=== PATIENT | female | born 1950 | race Caucasian/White ===

== ENCOUNTER 2021-06-09 09:50 | Inpatient (IN) ==
[2021-06-09] MEDS ORDERED: ONDANSETRON INJ 2 MG/ML 2 ML VIAL IV STA (11:48)
[2021-06-09] MEDS ORDERED: SODIUM CHLORIDE 0.9% 1000ML 1,000 ML IV ONE (11:48)
--- NOTE | 2021-06-09 11:51 | Emergency Department Note ---
Impression & Plan Pneumonia due to 2019-nCoV, Hypoxia, COVID-19 ED Provider Note NAME: ESTHER LAU AGE: 70 SEX: F : 1950 ARRIVES VIA: Walk-In INFORMANT: Patient ED PROVIDER(S): Gerson Damico DO CHIEF COMPLAINT: Cough, Covid positive nausea and diarrhea HPI: Patient is a 70-year-old female who presents ER for symptoms that started on the . She is not vaccinated. She admits to diarrhea going about 6 times a day. She is positive for noro virus. She has had nausea and fevers. She has had cough and congestion as well. She vomited once. Denies any dysuria, urgency, or frequency. No chest pain. No other exacerbating or remitting factors. ROS: See above HPI for pertinent positives & negatives. A total of 10 systems reviewed and were otherwise negative. PAST MEDICAL HISTORY:See Below PAST SURGICAL HISTORY:See Below FAMILY HISTORY:See Below SOCIAL HISTORY:See Below HOME MEDICATIONS:See Below ALLERGIES:See Below VITALS:See Below PHYSICAL EXAMINATION: GENERAL: Sitting up in chair, alert, well appearing, well nourished, Persistent cough EYE EXAM: normal conjunctiva. OROPHARYNX: no exudate, no erythema, lips, buccal mucosa, and tongue normal and mucous membranes are moist NECK: supple, no nuchal rigidity, no adenopathy, non-tender LUNGS: Clear to auscultation. Normal chest wall mechanics HEART: no murmurs, S1 normal and S2 normal ABDOMEN: abdomen soft, non-tender, normo-active bowel sounds, no masses, no rebound or guarding. BACK: Back is symmetrical on inspection and there is no deformity, no midline tenderness, no CVA tenderness. SKIN: no rashes and no bruising UPPER EXTREMITIES: upper extremities are grossly normal. LOWER EXTREMITIES: No pitting edema. NEURO EXAM: Normal sensorium, cranial nerves II-XII grossly intact, normal sp eech, no gross weakness of arms, no gross weakness of legs. MEDICAL DECISION MAKING: Patient is a 70-year-old female who presents the ER for upper respiratory symptoms associated with diarrhea. IV was established blood work obtained. She is Covid positive. Labs show mild leukopenia 4.2 thousand. No significant anemia. BMP with mild hypokalemia 3.4. LFTs bilirubin was unremarkable. Troponin was negative. UA was contaminated. Chest x-ray with bilateral infilt rates. Patient was given fluids and Decadron. She was updated bedside discussed with hospitalist for further evaluation. Triage Nursing notes reviewed. Limited review of prior medical records performed Vital Signs: reviewed and remarkable for no significant abnormalities Differential diagnosis: Differential diagnoses includes but is not limited to pneumonia, bronchitis, COPD/Asthma exacerbation, pneumothorax, pulmonary embolism, congestive heart failure, acute coronary syndrome ER treatment provided: See below Diagnostics interpreted by me: ECG: Sinus rhythm rate 81 Normal axis No PVCs QTC 401 Cardiac Monitoring: An order was placed for continuous cardiac monitoring. The monitor shows a rate of 80 with sinus rhythm. Laboratory studies: As stated above and show below. Imaging studies: Chest x-ray shows bilateral infiltrates Consultation(s): Discussed the hospitalist for further evaluation Procedures: none Critical Care: None Past Med/Surg History Medical History (Updated 06/09/21 @ 17:45 by Gerson Damico DO) Fibromyalgia GERD (gastroesophageal reflux disease) Hypercholesterolemia Lumbar radiculopathy Surgical History History of D&C Family History Other Diabetes Social History Smoking Status: Never smoker Hx Alcohol Use: No Hx Substance Use: No Feels Safe at Home: Yes Allergies Allergies Allergy/AdvReac Type Severity Reaction Status Date / Time amoxicillin [From Augmentin] Allergy Intermediate diarrhea Verified 06/07/21 19:13 celecoxib [From Celebrex] Allergy Intermediate Diarrhea Verified 06/07/21 19:13 clavulanic acid Allergy Intermediate diarrhea Verified 06/07/21 19:13 [From Augmentin] Home Meds Home Medications Medication Instructions Recorded Confirmed acetaminophen 500 mg tablet 1,000 mg PO DIRECTED PRN 06/07/21 06/09/21 (Tylenol Extra Strength) atorvastatin 20 mg tablet 20 mg PO HS 06/07/21 06/09/21 duloxetine 60 mg capsule,delayed 60 mg PO DAILY 06/07/21 06/09/21 release hydrocodone 5 mg-acetaminophen 325 1 tab PO DIRECTED PRN 06/07/21 06/09/21 mg tablet melatonin 5 mg tablet 5 mg PO HS 06/07/21 06/09/21 pregabalin 50 mg capsule 50 mg PO TID 06/07/21 06/09/21 trazodone 100 mg tablet 100 mg PO HS 06/07/21 06/09/21 Previous Rx's Medication Instructions Recorded ondansetron 4 mg disintegrating 4 mg PO Q8H PRN #10 tab 06/08/21 tablet Results & Data (ED) Vital Signs Vital Signs - 24 hr 06/09/21 09:52 06/09/21 13:55 06/09/21 14:06 Temperature 37.5 C Temperature Source Skin Pulse Rate 88 Pulse Rate [Apical] 79 Pulse Rhythm [Apical] Regular Respiratory Rate 20 14 Respiratory Effort / Characteristics Non-Labored Blood Pressure 105/62 Blood Pressure [Left Arm] 131/61 Blood Pressure Mean 76 Blood Pressure Mean [Left Arm] 84 Pulse Oximetry 94 95 89 L Oxygen Delivery Method Room Air Room Air Room Air Sepsis Recent Fever Within 48 Hours Yes Sepsis New/Unexplained Change in Mental Status No Sepsis Action Taken by Nursing No Action Required 06/09/21 15:00 Temperature Temperature Source Pulse Rate Pulse Rate [Apical] 81 Pulse Rhythm [Apical] Respiratory Rate Respiratory Effort / Characteristics Blood Pressure Blood Pressure [Left Arm] 107/37 L Blood Pressure Mean Blood Pressure Mean [Left Arm] 60 Pulse Oximetry 90 Oxygen Delivery Method Room Air Sepsis Recent Fever Within 48 Hours Sepsis New/Unexplained Change in Mental Status Sepsis Action Taken by Nursing Laboratory Data Result diagrams: 06/09/21 12:00 06/09/21 12:00 Lab Results 06/09/21 06/09/21 06/09/21 Range/Units 11:50 12:00 12:00 WBC 4.22 L (4.8-10.8) K/uL RBC 4.37 (4.2-5.4) M/uL Hgb 13.4 (12.0-16.0) g/dL Hct 39.4 (37-47) % MCV 90.2 (80-100) fL MCH 30.7 (25-34) pg MCHC 34.0 (32-36) g/dL RDW Std Deviation 40.6 (36.4-46.3) fL RDW Coeff of Suz[place] 12.3 (11.5-14.5) % Plt Count 125 L (130-400) K/uL MPV 12.8 H (7.4-10.4) fL Immature Gran % (Auto) 0.5 % Neut % (Auto) 81.0 % Lymph % (Auto) 11.6 % [place] % (Auto) 6.9 % Eos % (Auto) 0.0 % Baso % (Auto) 0.0 % Neut # (Auto) 3.42 (1.4-6.5) K/uL Lymph # (Auto) 0.49 L (1.2-3.4) K/uL [place] # (Auto) 0.29 (0.11-0.59) K/uL Eos # (Auto) 0.00 (0-0.5) K/uL Baso # (Auto) 0.00 (0-0.2) K/uL Immature Gran # (Auto) 0.02 (0.00-0.02) K/uL Sodium 139 (136-145) mmol/L Potassium 3.4 L (3.5-5.1) mmol/L Chloride 105 (98-107) mmol/L Carbon Dioxide 27 (21-32) mmol/L Anion Gap 7.0 (3-11) BUN 7 (7-18) mg/dl Creatinine 0.77 (0.6-1.2) mg/dl Est Cr Clr Drug Dosing 73.1 ml/min Est GFR ( Amer) 92.0 ml/min Est GFR (Non-Af Amer) 79.3 ml/min BUN/Creatinine Ratio 8.7 L (10-20) Glucose 138 H (70-99) mg/dl Calcium 8.2 L (8.5-10.1) mg/dl Magnesium (1.8-2.4) mg/dl Ferritin (8-388) ng/ml Total Bilirubin 0.3 (0.2-1) mg/dl AST 45 H (15-37) U/L ALT 28 (12-78) Alkaline Phosphatase 56 (45-117) U/L Troponin I < 0.015 (0-0.045) ng/ml C-Reactive Protein (0-0.29) mg/dl Total Protein 6.2 L (6.4-8.2) gm/dl Albumin 3.1 L (3.4-5.0) gm/dl Globulin 3.1 (2.5-4.0) gm/dl Albumin/Globulin Ratio 1.0 (0.9-2) Procalcitonin (0-0.5) ng/ml Specimen Hemolysis Urine Color Dark Yellow Urine Appearance Clear (Clear) Urine pH 6.0 (4.5-7.5) Ur Specific [place] 1.019 (1.000-1.030) Urine Protein 1+ H (Negative) Urine Glucose (UA) Negative (Negative) Urine Ketones Negative (Negative) Urine Blood Negative (Negative) Urine Nitrite Negative (Negative) Urine Bilirubin Negative (Negative) Urine Urobilinogen Negative (Negative) Ur Leukocyte Esterase Negative (Negative) Urine WBC (Auto) 5-10 H (0-5) /hpf Urine RBC (Auto) 0-4 (0-4) /hpf U Hyaline Cast (Auto) 5-10 H (0-5) /lpf U Epithel Cells (Auto) >30 H (0-5) /lpf Urine Bacteria (Auto) Negative (Negative) Ur Renal Epithelial Cell Not Reportable 06/09/21 06/09/21 Range/Units 12:00 12:00 WBC (4.8-10.8) K/uL RBC (4.2-5.4) M/uL Hgb (12.0-16.0) g/dL Hct (37-47) % MCV (80-100) fL MCH (25-34) pg MCHC (32-36) g/dL RDW Std Deviation (36.4-46.3) fL RDW Coeff of [place] (11.5-14.5) % Plt Count (130-400) K/uL MPV (7.4-10.4) fL Immature Gran % (Auto) % Neut % (Auto) % Lymph % (Auto) % [place] % (Auto) % Eos % (Auto) % Baso % (Auto) % Neut # (Auto) (1.4-6.5) K/uL Lymph # (Auto) (1.2-3.4) K/uL [place] # (Auto) (0.11-0.59) K/uL Eos # (Auto) (0-0.5) K/uL Baso # (Auto) (0-0.2) K/uL Immature Gran # (Auto) (0.00-0.02) K/uL Sodium (136-145) mmol/L Potassium (3.5-5.1) mmol/L Chloride (98-107) mmol/L Carbon Dioxide (21-32) mmol/L Anion Gap (3-11) BUN (7-18) mg/dl Creatinine (0.6-1.2) mg/dl Est Cr Clr Drug Dosing ml/min Est GFR ( Amer) ml/min Est GFR (Non-Af Amer) ml/min BUN/Creatinine Ratio (10-20) Glucose (70-99) mg/dl Calcium (8.5-10.1) mg/dl Magnesium 2.1 (1.8-2.4) mg/dl Ferritin 1463.9 H (8-388) ng/ml Total Bilirubin (0.2-1) mg/dl AST (15-37) U/L ALT (12-78) Alkaline Phosphatase (45-117) U/L Troponin I (0-0.045) ng/ml C-Reactive Protein 3.67 H (0-0.29) mg/dl Total Protein (6.4-8.2) gm/dl Albumin (3.4-5.0) gm/dl Globulin (2.5-4.0) gm/dl Albumin/Globulin Ratio (0.9-2) Procalcitonin 0.05 (0-0.5) ng/ml Specimen Hemolysis Urine Color Urine Appearance (Clear) Urine pH (4.5-7.5) Ur Specific [place] (1.000-1.030) Urine Protein (Negative) Urine Glucose (UA) (Negative) Urine Ketones (Negative) Urine Blood (Negative) Urine Nitrite (Negative) Urine Bilirubin (Negative) Urine Urobilinogen (Negative) Ur Leukocyte Esterase (Negative) Urine WBC (Auto) (0-5) /hpf Urine RBC (Auto) (0-4) /hpf U Hyaline Cast (Auto) (0-5) /lpf U Epithel Cells (Auto) (0-5) /lpf Urine Bacteria (Auto) (Negative) Ur Renal Epithelial Cell Administered Medications Discontinued Medications Sodium Chloride (Nss 1000ml) 1,000 mls @ 999 mls/hr IV .Q1H1M ONE Stop: 06/09/21 12:48 Last Infusion: 06/09/21 13:58 Dose: 0 mls/hr Documented by: [id number] Admin: 06/09/21 12:18 Dose: 999 mls/hr Documented by: [id number] Dexamethasone 6 mg/ Syringe 1.5 mls @ 1 mls/min IV ONE ONE Stop: 06/09/21 17:02 Last Admin: 06/09/21 17:39 Dose: 1 mls/min Documented by: [id number] Ondansetron HCl (Ondansetron Inj 2 Mg/Ml 2 Ml Vial) 4 mg IV NOW STA Stop: 06/09/21 11:49 Last Admin: 06/09/21 12:18 Dose: 4 mg Documented by: [id number] Potassium Chloride (Potassium Chloride Crtab 20 Meq Tabcr) 40 meq PO NOW ONE Stop: 06/09/21 15:35 Last Admin: 06/09/21 16:13 Dose: 40 meq Documented by: [id number] Imaging Data Radiologist's Impression: Chest X-Ray 06/09/21 11:49 XR chest 1V portable CLINICAL HISTORY: fever covid. Difficulty breathing. Follow-up alveolar opacities COMPARISON STUDY: 06/07/2021 TECHNIQUE: 1 view of the chest FINDINGS: Single frontal view of the chest demonstrates the cardiomediastinal silhouette to be within normal limits. Compared to previous examination, there has been significant interval increase of patchy interstitial and alveolar opacities present bilaterally. The findings are most characteristic of a viral type pneumonitis and Covid 19 pneumonia. There is no evidence for pleural effusion. There is no evidence for vascular congestion. There is no acute osseous pathology. IMPRESSION: Significant interval increase in patchy interstitial and alveolar opacities bilaterally characteristic of a viral type pneumonitis and Covid 19 pneumonia. ACT 112: Negative or not required by law. Electronically signed by: Mason Porras M.D. 06/09/2021 12:12 PM Discharge Plan Visit Data Chief Complaint: Vomiting Stated Complaint: NOROVIRUS/THROWING UP/DIARRHEA ED Provider: Gerson Damico Discharge Problem: Pneumonia due to 2019-nCoV, Hypoxia, COVID-19
--- NOTE | 2021-06-09 12:13 | XRay Report ---
XR chest 1V portable CLINICAL HISTORY: fever covid. Difficulty breathing. Follow-up alveolar opacities COMPARISON STUDY: 06/07/2021 TECHNIQUE: 1 view of the chest FINDINGS: Single frontal view of the chest demonstrates the cardiomediastinal silhouette to be within normal li mits. Compared to previous examination, there has been significant interval increase of patchy inters titial and alveolar opacities present bilaterally. The findings are most characteristic of a viral ty pe pneumonitis and Covid 19 pneumonia. There is no evidence for pleural effusion. There is no evidenc e for vascular congestion. There is no acute osseous pathology. IMPRESSION: Significant interval increase in patchy interstitial and alveolar opacities bilaterally c haracteristic of a viral type pneumonitis and Covid 19 pneumonia. ACT 112: Negative or not required by law. Electronically signed by: Mason Porras M.D. 06/09/2021 12:12 PM
[2021-06-09 12:33] LABS: Hematocrit (blood only) 39.4 % (37-47); Hemoglobin 13.4 g/dL (12.0-16.0); Mean Corpuscular Hemoglobin 30.7 pg (25-34); Mean Corpuscular Volume 90.2 fL (80-100); Mean Platelet Volume 12.8 fL (7.4-10.4); Platelet Count 125 K/uL (130-400); RDW Coefficient of Variation 12.3 % (11.5-14.5); RDW Standard Deviation 40.6 fL (36.4-46.3); Red Blood Count 4.37 M/uL (4.2-5.4); White Blood Count 4.22 K/uL (4.8-10.8)
[2021-06-09 12:37] LABS: Immature Granulocytes # (auto) 0.02 K/uL (0.00-0.02); Immature Granulocytes % (auto) 0.5 %; Lymphocytes # (auto) 0.49 K/uL (1.2-3.4); Lymphocytes % (auto) 11.6 %; Monocytes # (auto) 0.29 K/uL (0.11-0.59); Monocytes % (auto) 6.9 %; Neutrophils # (auto) 3.42 K/uL (1.4-6.5)
[2021-06-09 14:14] LABS: Alanine Aminotransferase 28 (12-78); Albumin Level 3.1 gm/dl (3.4-5.0); Aspartate Aminotransferase 45 U/L (15-37); BUN Creatinine Ratio 8.7 (10-20); Blood Urea Nitrogen 7 mg/dl (7-18); Calcium 8.2 mg/dl (8.5-10.1); Carbon Dioxide 27 mmol/L (21-32); Chloride 105 mmol/L (98-107); Creatinine Clr Calc Pharmacy 73.1 ml/min; Est GFR (Non-African American) 79.3 ml/min; Glucose 138 mg/dl (70-99); Potassium 3.4 mmol/L (3.5-5.1); Sodium 139 mmol/L (136-145)
[2021-06-09 14:21] LABS: Alkaline Phosphatase 56 U/L (45-117); Bilirubin,Total 0.3 mg/dl (0.2-1); Globulin 3.1 gm/dl (2.5-4.0); Total Protein 6.2 gm/dl (6.4-8.2); Troponin I < 0.015 ng/ml (0-0.045)
[2021-06-09 14:37] LABS: Appearance Urine Clear (Clear); Bacteria Urine Automated Negative (Negative); Bilirubin Urine Negative (Negative); Blood Urine Negative (Negative); Color Urine Dark Yellow; Epithelial Cell Urine Auto >30 /lpf (0-5); Glucose Urine UA Negative (Negative); Ketones Urine Negative (Negative); Leukocyte Esterase Urine Negative (Negative); Nitrite Urine Negative (Negative); Protein Urine 1+ (Negative); RBC Urine Automated 0-4 /hpf (0-4); Specific Gravity Urine 1.019 (1.000-1.030); Urobilinogen Urine Negative (Negative)
[2021-06-09] MEDS ORDERED: POTASSIUM CHLORIDE CRTAB 20 MEQ TABCR PO ONE (15:34)
[2021-06-09 15:48] LABS: C Reactive Protein 3.67 mg/dl (0-0.29); Ferritin 1463.9 ng/ml (8-388); Magnesium 2.1 mg/dl (1.8-2.4)
--- NOTE | 2021-06-09 15:50 | History & Physical Report ---
Date of Service June 09, 2021 Assessment & Plan (1) Pneumonia due to 2019-nCoV: (2) Hypoxia: Plan: Patient is 70-year-old female with PMH GERD, dyslipidemia, fibromyalgia presented to ER with complaint of nonproductive cough, fever, nasal congestion, nausea, diarrhea, loss of taste, CA, myalgias. Initial symptom onset 05/30/2021. No vomiting today. Positive outpatient COVID-19 test on 06/04/2021. Today in ER noted 89% on room air with ambulation, other vitals stable CXR: Patchy interstitial and alveolar opacities bilaterally No leukocytosis Admit MedSurg Isolation precautions CRP, ferritin, procalcitonin pending Start dexamethasone Supplemental oxygen as needed Incentive spirometry, flutter valve Duo nebs We will hold on remdesivir since patient >10 days symptom onset CBC, CMP in am (3) Diarrhea: Plan: Diarrhea secondary to norovirus (tested + 06/07/2021) and COVID-19 Gentle IVF Clear liquid diet (4) Acute hypokalemia: Plan: K: 3.4 Replace and monitor Obtain magnesium labs (5) Fibromyalgia: Plan: Continue duloxetine, pregabalin, hydrocodone as needed (6) Hypercholesterolemia: Plan: Continue atorvastatin DVT Prophylaxis -Lovenox SQ Full Code Follows with Dr Ricketts for routine care Pt was seen and care coordinated with Dr Allred. See addendum History of Present Illness Chief Complaint: cough, diarrhea Primary Care Provider: Bryce Ricketts Patient is 70-year-old female with PMH GERD, dyslipidemia, fibromyalgia presented to ER with complaint of nonproductive cough and nausea and diarrhea. Patient reports 05/30/2021 started with chills. 06/02/2021 started with cough, nausea, diarrhea. Patient reports loss of taste, nasal congestion, CA, myalgias, fever, was 100.6F this morning. She had positive COVID-19 test on 06/04/2021 outpatient. States yesterday vomited once. No vomiting today. Reports 2 episodes of diarrhea today. is also ill. Patient is not vaccinated for COVID-19. Was seen in ER 06/07/2021 and did not have hypoxia and was discharged home. She did have positive norovirus stool culture. Today in ER noted 89% on room air with ambulation, other vitals stable Chest x-ray consistent with Covid pneumonia. Denies hematemesis, hematochezia, melena, dizziness, syncope, vision changes, neck pain, CP, palpitations, sore throat, choking, otalgia, abdominal pain, paresthesias, extremity weakness, extremity edema, rashes, urinary symptoms. Allergies Allergy/AdvReac Type Severity Reaction Status Date / Time amoxicillin [From Augmentin] Allergy Intermediate diarrhea Verified 06/07/21 19:13 celecoxib [From Celebrex] Allergy Intermediate Diarrhea Verified 06/07/21 19:13 clavulanic acid Allergy Intermediate diarrhea Verified 06/07/21 19:13 [From Augmentin] Home Medications Medication Instructions Recorded Confirmed Type acetaminophen 500 mg tablet 1,000 mg PO DIRECTED PRN 06/07/21 06/09/21 History (Tylenol Extra Strength) atorvastatin 20 mg tablet 20 mg PO HS 06/07/21 06/09/21 History duloxetine 60 mg capsule,delayed 60 mg PO DAILY 06/07/21 06/09/21 History release hydrocodone 5 mg-acetaminophen 325 1 tab PO DIRECTED PRN 06/07/21 06/09/21 History mg tablet melatonin 5 mg tablet 5 mg PO HS 06/07/21 06/09/21 History pregabalin 50 mg capsule 50 mg PO TID 06/07/21 06/09/21 History trazodone 100 mg tablet 100 mg PO HS 06/07/21 06/09/21 History ondansetron 4 mg disintegrating 4 mg PO Q8H PRN #10 tab 06/08/21 06/09/21 Rx tablet Past Med/Surg History Medical History (Updated 06/09/21 @ 17:45 by Gerson Damico DO) Fibromyalgia GERD (gastroesophageal reflux disease) Hypercholesterolemia Lumbar radiculopathy Surgical History History of D&C Family History Other Diabetes Social History Smoking Status: Never smoker Hx Alcohol Use: No Hx Substance Use: No Feels Safe at Home: Yes Review of Systems Review of Systems: All systems reviewed & are unremarkable except as noted in HPI & below Physical Exam Physical Exam: General: no acute distress, WDWN Head: normocephalic, atraumatic Eyes: conjunctiva non-injected, anicteric ENT: normal inspection external ears, nose, mucous membranes dry Neck: supple, trachea midline Lungs: 93% on room air at rest, diminished breath sounds, crackles CV: RRR, no pretibial edema Abd: normal BS, soft, non-tender Ext: no cyanosis, no calf tenderness Neuro: A&O x 3, no focal deficits noted, normal affect Skin: warm, dry Results & Data Results & Data ([facility]) Vital Signs (Past 12 Hours) Vital Signs Temp Pulse Pulse Resp BP BP Pulse Ox 06/09/21 15:00 81 107/37 L 90 06/09/21 14:06 89 L 06/09/21 13:55 79 14 131/61 95 06/09/21 09:52 37.5 C 88 20 105/62 94 Laboratory Results Short CBC 06/09/21 Range/Units 12:00 WBC 4.22 L (4.8-10.8) K/uL Hgb 13.4 (12.0-16.0) g/dL Hct 39.4 (37-47) % Plt Count 125 L (130-400) K/uL BMP 06/09/21 12:00 Sodium 139 Potassium 3.4 L Chloride 105 Carbon Dioxide 27 BUN 7 Creatinine 0.77 Glucose 138 H Calcium 8.2 L Cardiac Enzymes 06/09/21 Range/Units 12:00 Troponin I < 0.015 (0-0.045) ng/ml Liver Function 06/09/21 Range/Units 12:00 Total Bilirubin 0.3 (0.2-1) mg/dl AST 45 H (15-37) U/L ALT 28 (12-78) Alkaline Phosphatase 56 (45-117) U/L Albumin 3.1 L (3.4-5.0) gm/dl Urine 06/09/21 Range/Units 11:50 Urine Color Dark Yellow Urine Appearance Clear (Clear) Urine pH 6.0 (4.5-7.5) Ur Specific [place] 1.019 (1.000-1.030) Urine Protein 1+ H (Negative) Urine Glucose (UA) Negative (Negative) Diagnostic Findings Chest X-Ray 12/08/21 11:49 XR chest 1V portable CLINICAL HISTORY: fever covid. Difficulty breathing. Follow-up alveolar opacities COMPARISON STUDY: 06/07/2021 TECHNIQUE: 1 view of the chest FINDINGS: Single frontal view of the chest demonstrates the cardiomediastinal silhouette to be within normal limits. Compared to previous examination, there has been significant interval increase of patchy interstitial and alveolar opacities present bilaterally. The findings are most characteristic of a viral type pneumonitis and Covid 19 pneumonia. There is no evidence for pleural effusion. There is no evidence for vascular congestion. There is no acute osseous pathology. IMPRESSION: Significant interval increase in patchy interstitial and alveolar opacities bilaterally characteristic of a viral type pneumonitis and Covid 19 pneumonia. ACT 112: Negative or not required by law. Electronically signed by: Mason Porras M.D. 06/09/2021 12:12 PM Code Status & VTE Plan VTE Prophylaxis Plan VTE Prophylaxis will be ordered: Yes Supervising Physician Co-Signing Physician Notes Patient is a 70-year-old female with history of fibromyalgia, dyslipidemia and other medical problems presents with history of cough, nausea, diarrhea associated with fever, chills. Also reports headache, myalgia, loss of taste and poor appetite. She was found to be hypoxic at 89% while on room air. Please review HPI for complete details in addition. Blood work suggestive of thrombocytopenia 125, hypokalemia 3.4. Urinalysis pending. She was recently found to have norovirus on stool studies. Chest x-ray showed interval increase in patchy interstitial and alveolar opacities bilaterally consistent with viral pneumonitis. Procalcitonin within normal limits. Initial troponin is negative. On exam patient is moderately built and nourished, no apparent distress, normocephalic atraumatic, EOMI, decreased breath sounds, clear to auscultation, S1-S2, no murmur, no pedal edema, abdomen soft, nontender, no normal bowel sounds, alert, awake, oriented, grossly no focal deficits. Acute hypoxic respiratory failure secondary to multifocal COVID-19 pneumonia. Continue dexamethasone. Supplemental oxygen as needed. Pulmonary hygiene. Will hold her lisinopril given onset of onset greater than 10 days. Replace electrolytes as needed. On Lovenox for DVT prophylaxis. I personally reviewed the record. Patient is interviewed and examined at bedside. Patient's care is coordinated with Monique Katz PA-C. Please refer to the documentation above for details of patient's presentation and for discussion of other issues.
--- NOTE | 2021-06-09 16:20 | Electrocardiogram Report ---
Test Reason : Blood Pressure : / mmHG Vent. Rate : 081 BPM Atrial Rate : 081 BPM P-R Int : 176 ms QRS Dur : 076 ms QT Int : 346 ms P-R-T Axes : 040 059 015 degrees QTc Int : 401 ms Poor data quality, interpretation may be adversely affected Normal sinus rhythm Possible Left atrial enlargement Low voltage QRS Nonspecific ST and T wave abnormality Abnormal ECG No previous ECGs available Confirmed by Dave Silver ([id number]) on 06/09/2021 4:20:30 PM Referred By: REFERRED SELF Confirmed By:Dave Silver
[2021-06-09] MEDS ORDERED: dexAMETHasone 6 MG in SYRINGE 0 ML IV ONE (17:01)
[2021-06-09] MEDS ORDERED: SODIUM CHLORIDE 0.9% 1000ML 1,000 ML IV SCH (18:01)
[2021-06-09] MEDS: dexAMETHasone 6 MG in SYRINGE 0 ML IV SCH (18:36)
[2021-06-09] MEDS ORDERED: ALBUT/IPRATROP 3MG/0.5MG NEB 3 ML VIAL NEB PRN (18:47)
[2021-06-09] MEDS ORDERED: ALBUT/IPRATROP 3MG/0.5MG NEB 3 ML VIAL NEB SCH (19:00)
[2021-06-09] MEDS: ENOXAPARIN INJ 40 MG/0.4 ML SYR SQ SCH (20:36)
[2021-06-09] MEDS: MELATONIN 3 MG TAB PO SCH (21:46)
[2021-06-09] MEDS: traZODone HCL 100 MG TAB PO SCH (21:46)
[2021-06-09] MEDS: ATORVASTATIN 20 MG TAB PO SCH (21:47)
[2021-06-09] MEDS: PREGABALIN 50 MG CAP PO SCH (21:47)
[2021-06-10] MEDS: ENOXAPARIN INJ 40 MG/0.4 ML SYR SQ SCH ×2 (06:23→16:58)
[2021-06-10 07:18] LABS: Hematocrit (blood only) 37.4 % (37-47); Hemoglobin 12.4 g/dL (12.0-16.0); Mean Corpuscular Hgb Conc 33.2 g/dL (32-36); Mean Corpuscular Volume 90.6 fL (80-100); Mean Platelet Volume 12.8 fL (7.4-10.4); Platelet Count 136 K/uL (130-400); RDW Coefficient of Variation 12.5 % (11.5-14.5); RDW Standard Deviation 41.2 fL (36.4-46.3); Red Blood Count 4.13 M/uL (4.2-5.4); White Blood Count 2.98 K/uL (4.8-10.8)
[2021-06-10] MEDS: dexAMETHasone 6 MG in SYRINGE 0 ML IV SCH (07:27)
[2021-06-10] MEDS: PREGABALIN 50 MG CAP PO SCH ×3 (07:28→21:14)
[2021-06-10] MEDS: ONDANSETRON INJ 2 MG/ML 2 ML VIAL IV PRN (07:28)
[2021-06-10] MEDS: DULoxetine HCL 60 MG CAP PO SCH (07:44)
[2021-06-10 07:50] LABS: Albumin Level 2.7 gm/dl (3.4-5.0); BUN Creatinine Ratio 12.6 (10-20); Bilirubin,Total 0.2 mg/dl (0.2-1); Calcium 8.1 mg/dl (8.5-10.1); Creatinine Clr Calc Pharmacy 81.6 ml/min; Est GFR (African American) 103.7 ml/min; Est GFR (Non-African American) 89.4 ml/min; Magnesium 2.1 mg/dl (1.8-2.4); Potassium 3.4 mmol/L (3.5-5.1)
[2021-06-10 07:51] LABS: Albumin Globulin Ratio 0.8 (0.9-2); Globulin 3.3 gm/dl (2.5-4.0)
[2021-06-10 09:49] LABS: Adenovirus F 40/41 PCR Not Detected (NotDetected); Astrovirus PCR Not Detected (NotDetected); Campylobacter PCR Not Detected (NotDetected); Clostridium diff Toxin A/B PCR Not Detected (NotDetected); Cryptosporidium PCR Not Detected (NotDetected); Cyclospora cayetanensis PCR Not Detected (NotDetected); Entamoeba histolytica PCR Not Detected (NotDetected); Enteroaggregative E.coli(EAEC) Not Detected (NotDetected); Enteropathogenic E.coli (EPEC) Not Detected (NotDetected); Enterotoxigenic E.coli (ETEC) Not Detected (NotDetected); Giardia lamblia PCR Not Detected (NotDetected); Norovirus GI/GII PCR Not Detected (NotDetected); Plesiomonas shigelloides PCR Not Detected (NotDetected); Rotavirus A PCR Not Detected (NotDetected); Salmonella PCR Not Detected (NotDetected); Sapovirus PCR Not Detected (NotDetected); Shiga-like Toxin E.coli (STEC) Not Detected (NotDetected); Shigella/Enteroinvasive E.coli Not Detected (NotDetected); Vibrio cholerae PCR Not Detected (NotDetected); Vibrio species PCR Not Detected (NotDetected); Yersinia enterocolitica PCR Not Detected (NotDetected)
[2021-06-10] MEDS ORDERED: POTASSIUM CHLORIDE CRTAB 20 MEQ TABCR PO STA (11:06)
--- NOTE | 2021-06-10 19:52 | Hospitalist Progress Note ---
Date of Service June 10, 2021 Assessment & Plan (1) Pneumonia due to 2019-nCoV: Plan: Hypoxic, continues on dexamethasone, remdesivir not given as patient presented greater than 10 days beyond symptom onset. Continues on supplemental oxygen with a 50% increase today from needs yesterday. Continue supportive care. (2) Diarrhea: Plan: Diarrhea secondary to norovirus (tested + 06/07/2021) and COVID-19 Gentle IVF Clear liquid diet-advance as tolerated (3) Fibromyalgia: Plan: Chronic, stable, continue duloxetine, pregabalin, hydrocodone as needed per home regimen (4) DVT prophylaxis: Plan: Lovenox Full code Disposition to home when off oxygen and medically stable Linda Zuniga DO [place] [facility]ist Admission and Anticipated Discharge Date Admission Date: June 09, 2021 Subjective 70-year-old female admitted with Covid pneumonia and norovirus diarrhea She reports approximately 4 episodes of diarrhea today, denies any abdominal pain, tolerating p.o., afebrile Reports persistent cough and shortness of breath. Oxygenating well on 2 L nasal cannula. She is tolerating p.o., afebrile Review of Systems Review of Systems: All systems were reviewed and negative except as indicated above. Physical Exam Physical Exam: CONSTITUTIONAL: WNWD, vitals as above, generally ill appearing, NAD EYES: normal conjunctivae, no scleral icterus, ENT: external ear and nose normal, NECK: trachea midline, no lymphadenopathy, normal thyroid RESPIRATORY: clear to auscultation bilaterally, no crackles, rales or wheezes, normal respiratory effort CARDIOVASCULAR: regular rate and rhythm, S1 and 2 heard without murmurs, gallops or rubs, no JVD, no peripheral edema CHEST: inspection of chest was normal GASTROINTESTINAL: soft, nontender, no hepatomegaly, no guarding MUSCULOSKELETAL: strength 5/5 throughout, head is normocephalic and atraumatic, neck supple, normal palpation of chest wall without tenderness SKIN: warm and dry, NEUROLOGIC: CN 2-12 grossly intact, no sensory deficit, normal cognition, normal speech, no tremor PSYCHIATRIC: alert cooperative and oriented to person, place and time. Results & Data Results & Data ([facility]) Vital Signs (Past 12 Hours) Vital Signs Temp Pulse Resp BP Pulse Ox 06/10/21 15:00 36.6 C 82 20 130/78 95 Laboratory Results Short CBC 06/10/21 Range/Units 06:47 WBC 2.98 L (4.8-10.8) K/uL Hgb 12.4 (12.0-16.0) g/dL Hct 37.4 (37-47) % Plt Count 136 (130-400) K/uL BMP 06/10/21 06:47 Sodium 141 Potassium 3.4 L Chloride 111 H Carbon Dioxide 23 BUN 9 Creatinine 0.69 Glucose 144 H Calcium 8.1 L Liver Function 06/10/21 Range/Units 06:47 Total Bilirubin 0.2 (0.2-1) mg/dl AST 58 H (15-37) U/L ALT 36 (12-78) Alkaline Phosphatase 47 (45-117) U/L Albumin 2.7 L (3.4-5.0) gm/dl Medications Administered Current Inpatient Medications Acetaminophen (Acetaminophen 325 Mg Tab) 650 mg PO Q4H PRN PRN Reason: Pain or Fever Stop: 07/09/21 18:00 Hydrocodone Bitart/Acetaminophen (Hydrocodone/Acetamophen 5/325mg Tab) 1 tab PO Q6H PRN PRN Reason: Moderate Pain Stop: 06/23/21 18:00 Albuterol (Albut/Ipratrop 3mg/0.5mg Neb 3 Ml Vial) 3 ml NEB Q4R PRN PRN Reason: Shortness Of Breath Or Wheezing Stop: 07/09/21 18:46 Atorvastatin Calcium (Atorvastatin 20 Mg Tab) 20 mg PO HS JOSÉ ANTONIO Stop: 07/09/21 20:59 Last Admin: 06/09/21 21:47 Dose: 20 mg Documented by: Duloxetine HCl (Duloxetine Hcl 60 Mg Cap) 60 mg PO DAILY JOSÉ ANTONIO Stop: 07/10/21 08:59 Last Admin: 06/10/21 07:44 Dose: 60 mg Documented by: Enoxaparin Sodium (Enoxaparin Inj 40 Mg/0.4 Ml Syr) 40 mg SQ Q12H JOSÉ ANTONIO Stop: 07/09/21 18:59 Last Admin: 06/10/21 16:58 Dose: 40 mg Documented by: Dexamethasone 6 mg/ Syringe 1.5 mls @ 1 mls/min IV DAILY JOSÉ ANTONIO Stop: 06/19/21 18:00 Last Admin: 06/10/21 07:27 Dose: 1 mls/min Documented by: Melatonin (Melatonin 3 Mg Tab) 3 mg PO [facility] Stop: 07/09/21 20:59 Last Admin: 06/09/21 21:46 Dose: 3 mg Documented by: Ondansetron HCl (Ondansetron Inj 2 Mg/Ml 2 Ml Vial) 4 mg IV Q6H PRN PRN Reason: Nausea Stop: 07/09/21 18:00 Last Admin: 06/10/21 07:28 Dose: 4 mg Documented by: Pregabalin (Pregabalin 50 Mg Cap) 50 mg PO TID [facility] Stop: 07/09/21 20:59 Last Admin: 06/10/21 15:02 Dose: 50 mg Documented by: Trazodone HCl (Trazodone Hcl 100 Mg Tab) 100 mg PO [facility] Stop: 07/09/21 20:59 Last Admin: 06/09/21 21:46 Dose: 100 mg Documented by:
[2021-06-10] MEDS: ATORVASTATIN 20 MG TAB PO SCH (21:14)
[2021-06-10] MEDS: traZODone HCL 100 MG TAB PO SCH (21:14)
[2021-06-10] MEDS: MELATONIN 3 MG TAB PO SCH (21:15)
[2021-06-11] MEDS: ENOXAPARIN INJ 40 MG/0.4 ML SYR SQ SCH ×2 (06:13→17:55)
[2021-06-11 06:22] LABS: Hematocrit (blood only) 35.2 % (37-47); Hemoglobin 11.9 g/dL (12.0-16.0); Mean Corpuscular Hemoglobin 30.8 pg (25-34); Mean Corpuscular Hgb Conc 33.8 g/dL (32-36); Mean Corpuscular Volume 91.2 fL (80-100); Mean Platelet Volume 11.7 fL (7.4-10.4); Platelet Count 145 K/uL (130-400); RDW Coefficient of Variation 12.6 % (11.5-14.5); RDW Standard Deviation 42.2 fL (36.4-46.3); Red Blood Count 3.86 M/uL (4.2-5.4); White Blood Count 7.62 K/uL (4.8-10.8)
[2021-06-11] MEDS: ACETAMINOPHEN 325 MG TAB PO PRN ×2 (06:30→20:11)
[2021-06-11 06:54] LABS: BUN Creatinine Ratio 10.4 (10-20); C Reactive Protein 1.68 mg/dl (0-0.29); Creatinine Clr Calc Pharmacy 69.5 ml/min; Est GFR (African American) 86.5 ml/min; Est GFR (Non-African American) 74.6 ml/min; Potassium 3.8 mmol/L (3.5-5.1)
[2021-06-11 06:55] LABS: Phosphorus 2.1 mg/dl (2.5-4.9)
[2021-06-11] MEDS: DULoxetine HCL 60 MG CAP PO SCH (07:03)
[2021-06-11] MEDS: PREGABALIN 50 MG CAP PO SCH ×3 (07:03→20:08)
[2021-06-11] MEDS: dexAMETHasone 6 MG in SYRINGE 0 ML IV SCH (07:03)
[2021-06-11] MEDS ORDERED: LOPERAMIDE HCL 2 MG CAP PO PRN (12:07)
--- NOTE | 2021-06-11 17:59 | Hospitalist Progress Note ---
Date of Service June 11, 2021 Assessment & Plan (1) Pneumonia due to 2019-nCoV: Plan: Continues on dexamethasone, remdesivir not given as patient presented greater than 10 days beyond symptom onset. Continues on supplemental oxygen with a 50% increase today from needs yesterday. Continue supportive care. (2) Diarrhea: Plan: Diarrhea secondary to norovirus (tested + 06/07/2021) and COVID-19, oral rehydration therapy with Powerade. Tolerating food. Imodium as needed. (3) Fibromyalgia: Plan: Chronic, stable, continue duloxetine, pregabalin, hydrocodone as needed per home regimen (4) DVT prophylaxis: Plan: Lovenox Full code Disposition to home when off oxygen and medically stable [facility] and Anticipated Discharge Date Admission Date: June 09, 2021 Subjective 70-year-old female admitted with Covid pneumonia and norovirus diarrhea She reports approximately 5 episodes of diarrhea today, denies any abdominal pain, tolerating p.o., afebrile Has not received any Imodium today. Reports persistent cough and shortness of breath and now requiring slightly higher oxygen today than yesterday. Currently oxygenating 90% on 4.5 L nasal cannula. We discussed some expectations regarding hospitalization for Covid and goals to discharge when she is off oxygen. She verbalized understanding. Review of Systems Review of Systems: All systems were reviewed and negative except as indicated above. Physical Exam Physical Exam: CONSTITUTIONAL: WNWD, vitals as above, generally ill appearing, NAD EYES: normal conjunctivae, no scleral icterus, ENT: external ear and nose normal, NECK: trachea midline, no lymphadenopathy, normal thyroid RESPIRATORY: clear to auscultation bilaterally, no crackles, rales or wheezes, normal respiratory effort CARDIOVASCULAR: regular rate and rhythm, S1 and 2 heard without murmurs, gallops or rubs, no JVD, no peripheral edema CHEST: inspection of chest was normal GASTROINTESTINAL: soft, nontender, no hepatomegaly, no guarding MUSCULOSKELETAL: strength 5/5 throughout, head is normocephalic and atraumatic, neck supple, normal palpation of chest wall without tenderness SKIN: warm and dry, NEUROLOGIC: CN 2-12 grossly intact, no sensory deficit, normal cognition, normal speech, no tremor PSYCHIATRIC: alert cooperative and oriented to person, place and time. Results & Data Results & Data ([place]) Vital Signs (Past 12 Hours) Vital Signs Temp Pulse Resp BP Pulse Ox 06/11/21 14:08 36.3 C L 88 18 118/72 90 06/11/21 07:00 37.7 C H 80 20 133/74 93 06/11/21 06:03 76 91 Laboratory Results Short CBC 06/11/21 Range/Units 06:06 WBC 7.62 (4.8-10.8) K/uL Hgb 11.9 L (12.0-16.0) g/dL Hct 35.2 L (37-47) % Plt Count 145 (130-400) K/uL BMP 06/11/21 06:06 Sodium 142 Potassium 3.8 Chloride 109 H Carbon Dioxide 27 BUN 8 Creatinine 0.81 Glucose 126 H Calcium 8.0 L Medications Administered Current Inpatient Medications Acetaminophen (Acetaminophen 325 Mg Tab) 650 mg PO Q4H PRN PRN Reason: Pain or Fever Stop: 07/09/21 18:00 Last Admin: 06/11/21 06:30 Dose: 650 mg Documented by: Hydrocodone Bitart/Acetaminophen (Hydrocodone/Acetamophen 5/325mg Tab) 1 tab PO Q6H PRN PRN Reason: Moderate Pain Stop: 06/23/21 18:00 Albuterol (Albut/Ipratrop 3mg/0.5mg Neb 3 Ml Vial) 3 ml NEB Q4R PRN PRN Reason: Shortness Of Breath Or Wheezing Stop: 07/09/21 18:46 Atorvastatin Calcium (Atorvastatin 20 Mg Tab) 20 mg PO HS JOSÉ ANTONIO Stop: 07/09/21 20:59 Last Admin: 06/10/21 21:14 Dose: 20 mg Documented by: Duloxetine HCl (Duloxetine Hcl 60 Mg Cap) 60 mg PO DAILY JOSÉ ANTONIO Stop: 07/10/21 08:59 Last Admin: 06/11/21 07:03 Dose: 60 mg Documented by: Enoxaparin Sodium (Enoxaparin Inj 40 Mg/0.4 Ml Syr) 40 mg SQ Q12H JOSÉ ANTONIO Stop: 07/09/21 18:59 Last Admin: 06/11/21 17:55 Dose: 40 mg Documented by: Dexamethasone 6 mg/ Syringe 1.5 mls @ 1 mls/min IV DAILY JOSÉ ANTONIO Stop: 06/19/21 18:00 Last Admin: 06/11/21 07:03 Dose: 1 mls/min Documented by: Loperamide HCl (Loperamide Hcl 2 Mg Cap) 2 mg PO UD PRN PRN Reason: Diarrhea Stop: 07/11/21 12:06 Melatonin (Melatonin 3 Mg Tab) 3 mg PO [facility] Stop: 07/09/21 20:59 Last Admin: 06/10/21 21:15 Dose: 3 mg Documented by: Ondansetron HCl (Ondansetron Inj 2 Mg/Ml 2 Ml Vial) 4 mg IV Q6H PRN PRN Reason: Nausea Stop: 07/09/21 18:00 Last Admin: 06/10/21 07:28 Dose: 4 mg Documented by: Pregabalin (Pregabalin 50 Mg Cap) 50 mg PO TID [facility] Stop: 07/09/21 20:59 Last Admin: 06/11/21 14:01 Dose: 50 mg Documented by: Trazodone HCl (Trazodone Hcl 100 Mg Tab) 100 mg PO [facility] Stop: 07/09/21 20:59 Last Admin: 06/10/21 21:14 Dose: 100 mg Documented by:
[2021-06-11] MEDS ORDERED: LOPERAMIDE HCL 2 MG CAP PO STA (18:36)
[2021-06-11] MEDS: MELATONIN 3 MG TAB PO SCH (20:08)
[2021-06-11] MEDS: traZODone HCL 100 MG TAB PO SCH (20:09)
[2021-06-11] MEDS: ATORVASTATIN 20 MG TAB PO SCH (20:09)
[2021-06-12] MEDS: guaiFENesin SUGAR FREE 200 MG/10 ML UDC PO PRN ×2 (00:36→07:59)
[2021-06-12] MEDS: ENOXAPARIN INJ 40 MG/0.4 ML SYR SQ SCH ×2 (06:19→17:32)
[2021-06-12] MEDS: BENZONATATE 100 MG CAPSULE PO PRN ×3 (06:19→20:10)
[2021-06-12] MEDS: HYDROCODONE/ACETAMOPHEN 5/325MG TAB PO PRN ×2 (06:32→12:36)
[2021-06-12 06:37] LABS: Hematocrit (blood only) 35.7 % (37-47); Hemoglobin 11.5 g/dL (12.0-16.0); Mean Corpuscular Hemoglobin 29.9 pg (25-34); Mean Corpuscular Hgb Conc 32.2 g/dL (32-36); Mean Corpuscular Volume 92.7 fL (80-100); Mean Platelet Volume 12.2 fL (7.4-10.4); Platelet Count 165 K/uL (130-400); RDW Coefficient of Variation 12.6 % (11.5-14.5); RDW Standard Deviation 42.5 fL (36.4-46.3); Red Blood Count 3.85 M/uL (4.2-5.4); White Blood Count 8.93 K/uL (4.8-10.8)
[2021-06-12 07:06] LABS: BUN Creatinine Ratio 12.4 (10-20); C Reactive Protein 6.3 mg/dl (0-0.29); Calcium 8.3 mg/dl (8.5-10.1); Est GFR (African American) 96.5 ml/min; Est GFR (Non-African American) 83.2 ml/min; Magnesium 2.3 mg/dl (1.8-2.4); Potassium 3.9 mmol/L (3.5-5.1)
[2021-06-12 07:07] LABS: Phosphorus 2.7 mg/dl (2.5-4.9)
[2021-06-12] MEDS: DULoxetine HCL 60 MG CAP PO SCH (07:57)
[2021-06-12] MEDS: dexAMETHasone 6 MG in SYRINGE 0 ML IV SCH (07:57)
[2021-06-12] MEDS: PREGABALIN 50 MG CAP PO SCH ×3 (07:57→20:09)
--- NOTE | 2021-06-12 15:24 | Hospitalist Progress Note ---
Date of Service June 12, 2021 Assessment & Plan (1) Acute respiratory failure with hypoxia: (2) Pneumonia due to 2019-nCoV: Plan: Currently on dexamethasone Procalcitonin done today is negative. Considering worsening oxygen requirements, will get CT PE to rule out PE. Lasix IV and monitor (3) Diarrhea: Plan: Diarrhea secondary to norovirus (tested + 06/07/2021) and COVID-19 Diarrhea currently resolved (4) Fibromyalgia: Plan: Chronic, stable, continue duloxetine, pregabalin, hydrocodone as needed per home regimen (5) DVT prophylaxis: Plan: Lovenox Full code Admission and Anticipated Discharge Date Admission Date: June 09, 2021 Subjective 70-year-old female admitted with Covid pneumonia and norovirus diarrhea Patient seen and examined today. Reported diarrhea is completely resolved. Reports nausea, cough, shortness of breath. Denies any chest pain, palpitations Denies any fevers, chills, abdominal pain, vomiting Denies dysuria, frequency or urgency Physical Exam Constitutional: + well hydrated; no acute distress Eyes: PERRL, conjunctivae normal, anicteric sclerae ENMT: external ear and nose normal, oropharynx normal Respiratory: On nasal cannula 15 L/min, crackles posteriorly Cardiovascular: RRR, S1-S2 Gastrointestinal (Abdomen): normal bowel sounds, soft, nontender, no hepatosplenomegaly Musculoskeletal: No pedal edema Neurologic: PERRL, EOMI, accommodation nl, no face palsy, no dysarthria Psychiatric: A+Ox3, euthymic affect Results & Data Results & Data ([facility]) Vital Signs (Past 12 Hours) Vital Signs Temp Pulse Resp BP Pulse Ox 06/12/21 13:17 98 06/12/21 12:28 90 06/12/21 12:25 83 L 06/12/21 12:07 92 06/12/21 07:35 37.1 C 72 20 98/63 L 91 Laboratory Results Abnormal lab results 06/12/21 06/12/21 Range/Units 06:21 06:21 RBC 3.85 L (4.2-5.4) M/uL Hgb 11.5 L (12.0-16.0) g/dL Hct 35.7 L (37-47) % MPV 12.2 H (7.4-10.4) fL Chloride 108 H (98-107) mmol/L Glucose 129 H (70-99) mg/dl Calcium 8.3 L (8.5-10.1) mg/dl C-Reactive Protein 6.30 H (0-0.29) mg/dl
[2021-06-12] MEDS ORDERED: FUROSEMIDE INJ 20 MG/2 ML VIAL IV ONE (16:27)
--- NOTE | 2021-06-12 16:31 | XRay Report ---
XR chest 1V portable CLINICAL HISTORY: Worsening hypoxia. Reassess airspace opacities. COMPARISON STUDY: 06/09/2021 TECHNIQUE: 1 view of the chest FINDINGS: Single frontal view of the chest demonstrates the cardiomediastinal silhouette to be within normal li mits. Compared to previous examination, there has been slight improvement in right alveolar and inter stitial airspace opacities. However, there is significant interval increase in left alveolar and inte rstitial opacities. There is no evidence for pleural effusion. There is no evidence for vascular christophe estion. There is no acute osseous pathology. IMPRESSION: Mild improvement involving interstitial and alveolar opacities on the right with signific ant interval worsening of interstitial and alveolar opacities on the left. Findings are again charact eristic of Covid pneumonia. ACT 112: Negative or not required by law. Electronically signed by: Mason Porras M.D. 06/12/2021 4:29 PM
--- NOTE | 2021-06-12 19:01 | CT Scan Report ---
CT angio chest PE protocol CLINICAL HISTORY: Shortness of breath and Covid pneumonia. Evaluate for pulmonary embolus COMPARISON STUDY: Portable chest from 06/12/2021 CT DOSE: 344.76 mGy.cm TECHNIQUE: CT Angio of the chest was performed.followed by image post processing with coronal, and s agittal MIP reformats. Contrast Volume: Optiray 320, 120 ml FINDINGS: Vasculature: There is homogeneous perfusion of the pulmonary vasculature bilaterally. No intraluminal filling defects or evidence for pulmonary embolus is seen. Airway: The airway is clear. No endobronchial lesion is identified. Lungs: Extensive groundglass opacities are present throughout both lungs characteristic of a viral ty pe pneumonitis and Covid 19 pneumonia. The lungs are otherwise clear of confluent alveolar opacities, air bronchograms or pulmonary nodules. Pleura: There is no evidence for pleural effusion. There is no evidence for pneumothorax. Mediastinum: There is no evidence for pathologic adenopathy. The heart size is within normal limits. There is mild coronary artery calcification. The thoracic aorta is within normal limits. There is no evidence for pericardial effusion. Upper abdomen:The adrenal glands are normal bilaterally. There is a small hiatal hernia. Osseous structures: There is no acute osseous pathology. Impression: 1. No CTA evidence for pulmonary embolus. 2. Extensive groundglass opacities are present throughout both lungs characteristic of a viral type p neumonitis and Covid 19 pneumonia. ACT 112: Negative or not required by law. Electronically signed by: Mason Porras M.D. 06/12/2021 7:00 PM
[2021-06-12] MEDS ORDERED: OPTIRAY 320 125ml IV ONE (19:02)
[2021-06-12] MEDS: ATORVASTATIN 20 MG TAB PO SCH (20:09)
[2021-06-12] MEDS: MELATONIN 3 MG TAB PO SCH (20:09)
[2021-06-12] MEDS: ACETAMINOPHEN 325 MG TAB PO PRN (20:10)
[2021-06-12] MEDS: traZODone HCL 100 MG TAB PO SCH (20:10)
[2021-06-13 05:56] LABS: Hematocrit (blood only) 35.4 % (37-47); Hemoglobin 11.8 g/dL (12.0-16.0); Mean Corpuscular Hemoglobin 30.3 pg (25-34); Mean Corpuscular Hgb Conc 33.3 g/dL (32-36); Mean Platelet Volume 12.2 fL (7.4-10.4); Platelet Count 174 K/uL (130-400); RDW Coefficient of Variation 12.4 % (11.5-14.5); RDW Standard Deviation 41.7 fL (36.4-46.3); Red Blood Count 3.89 M/uL (4.2-5.4); White Blood Count 10.05 K/uL (4.8-10.8)
[2021-06-13] MEDS: ONDANSETRON INJ 2 MG/ML 2 ML VIAL IV PRN ×2 (06:05→20:33)
[2021-06-13] MEDS: ENOXAPARIN INJ 40 MG/0.4 ML SYR SQ SCH ×2 (06:06→17:53)
[2021-06-13 06:25] LABS: Calcium 8.6 mg/dl (8.5-10.1); Creatinine Clr Calc Pharmacy 89.3 ml/min; Est GFR (African American) 106.8 ml/min; Est GFR (Non-African American) 92.2 ml/min; Potassium 3.9 mmol/L (3.5-5.1)
[2021-06-13 06:28] LABS: C Reactive Protein 8.42 mg/dl (0-0.29)
[2021-06-13 06:38] LABS: Magnesium 2.3 mg/dl (1.8-2.4)
[2021-06-13] MEDS: dexAMETHasone 6 MG in SYRINGE 0 ML IV SCH (07:27)
[2021-06-13] MEDS: guaiFENesin SUGAR FREE 200 MG/10 ML UDC PO PRN (07:27)
[2021-06-13] MEDS: DULoxetine HCL 60 MG CAP PO SCH (07:27)
[2021-06-13] MEDS: PREGABALIN 50 MG CAP PO SCH ×3 (07:28→20:37)
[2021-06-13] MEDS: BENZONATATE 100 MG CAPSULE PO PRN (07:28)
[2021-06-13 08:00] LABS: D Dimer 1080 ug/L FEU (0-500)
[2021-06-13 09:41] LABS: Allen Test Pos (Pos); Base Excess ABG 6.2 mEq/L (-9-1.8); HCO3 ABG 31 mmol/L (19-24); PCO2 ABG 44 mmHg (35-46); PO2 ABG 60 mmHg (80-95); pH ABG 7.46 (7.35-7.45)
--- NOTE | 2021-06-13 11:09 | Pulmonary Consultation ---
Date of Consultation June 13, 2021 Assessment & Plan (1) ARDS (adult respiratory distress syndrome): (2) COVID-19: (3) Hypoxia: Impression: 70-year-old unvaccinated female with severe Covid pneumonitis and progressive hypoxemic respiratory failure/ARDS. Recommendations: 1. Hypoxemic respiratory failure: Continue high flow oxygen. She appears comfortable currently and is not in need of intubation mechanical ventilation. Can supplement high flow with nonrebreather or facemask if needed. She should try to self prone is much as possible. Should she fail, would recommend initiation of CPAP. If she fails CPAP and these other interventions, could consider intubation mechanical ventilation at this time. Recommend search for other potential reversible causes of her hypoxemia. Would check a BNP and consider empiric diuresis if elevated. 2. Covid pneumonitis: The patient's procalcitonin is gone from 1.6-6 0.3-8.42 despite dexamethasone. She was screened and meets criteria for baricitinib. Risks and benefits were discussed with the patient. She agrees to proceed. We will trend CRP and consider higher dose steroids should the patient's CRP continue to rise despite this regimen. 3. Procalcitonin was normal so no indication for antimicrobial agents currently. 4. DVT prophylaxis per primary service Recommend the above interventions with repeat reassessment. If her condition deteriorates, she may require intubation mechanical ventilation. Indications for mechanical ventilation would include refractory hypoxemia despite above interventions, increased work of breathing, respiratory muscle fatigue, or altered sensorium. Pulmonary will sign off at this point time. Please contact ICU service should the patient clinically deteriorate History of Present Illness Attending Physician: Sophie Causey MD History of Present Illness Asked by hospitalist to assist in evaluation management this patient with progressive hypoxemic respiratory failure secondary to Covid pneumonitis. History is obtained from review the electronic medical record as well as discussion with the patient. Patient is a 70-year-old unvaccinated female who was admitted to the facility 06/09/2021 with complaints of cough nausea and diarrhea. Her symptoms started 05/30. When she returned to the emergency room she had oxygen saturations of 89%. She was initiated on supplemental oxygen and continued on dexamethasone. Her oxygen requirement is increased over the last several days. She was also found to have norovirus. Over the night last night she escalated to high flow nasal cannula at 60 L/min 100% with oxygen saturations in the mid to high 80% range. She tried self proning last night and was ultimately successful in remaining prone. She is breathing comfortably and denies any increased shortness of breath or work of breathing. She is not having any chest pain or palpitations. No cough or sputum production. No wheezing. Allergies Allergy/AdvReac Type Severity Reaction Status Date / Time amoxicillin [From Augmentin] Allergy Intermediate diarrhea Verified 06/07/21 19:13 celecoxib [From Celebrex] Allergy Intermediate Diarrhea Verified 06/07/21 19:13 clavulanic acid Allergy Intermediate diarrhea Verified 06/07/21 19:13 [From Augmentin] Home Medications Medication Instructions Recorded Confirmed Type acetaminophen 500 mg tablet 1,000 mg PO DIRECTED PRN 06/07/21 06/09/21 History (Tylenol Extra Strength) atorvastatin 20 mg tablet 20 mg PO HS 06/07/21 06/09/21 History duloxetine 60 mg capsule,delayed 60 mg PO DAILY 06/07/21 06/09/21 History release hydrocodone 5 mg-acetaminophen 325 1 tab PO DIRECTED PRN 06/07/21 06/09/21 History mg tablet melatonin 5 mg tablet 5 mg PO HS 06/07/21 06/09/21 History pregabalin 50 mg capsule 50 mg PO TID 06/07/21 06/09/21 History trazodone 100 mg tablet 100 mg PO HS 06/07/21 06/09/21 History ondansetron 4 mg disintegrating 4 mg PO Q8H PRN #10 tab 06/08/21 06/09/21 Rx tablet Patient History Medical History (Updated 06/13/21 @ 11:10 by Theron Mendosa MD) Fibromyalgia GERD (gastroesophageal reflux disease) Hypercholesterolemia Lumbar radiculopathy Surgical History History of D&C Family History Other Diabetes Social History Smoking Status: Never smoker Hx Alcohol Use: No Hx Substance Use: No Preferred Language: Tongan Communication Ability: Effective Scientific Illustrator Required: No Beliefs That Will Affect Care: None marital status: Current Living Situation: Spouse Feels Safe at Home: Yes Safety Concerns: Feels Safe At This Time Assistive Devices: Oxygen - Continuous Review of Systems Review of Systems: Please refer to admission H&P. No additions or deletions Physical Exam Constitutional: + well hydrated; no acute distress Eyes: PERRL, conjunctivae normal, anicteric sclerae ENMT: external ear and nose normal, oropharynx normal Respiratory: normal respiratory effort; no respiratory distress and no labored breathing Auscultation: + crackles Cardiovascular: RRR, S1-S2 Gastrointestinal (Abdomen): normal bowel sounds, soft, nontender, no hepatosplenomegaly Musculoskeletal: No pedal edema Psychiatric: A+Ox3, euthymic affect Results & Data Results & Data ([facility]) Vital Signs (Past 12 Hours) Vital Signs Pulse Resp Pulse Ox 06/13/21 11:02 88 L 06/13/21 10:13 92 06/13/21 08:39 22 93 06/13/21 06:49 72 22 88 L 06/13/21 05:08 68 18 94 06/13/21 05:00 63 93 06/13/21 03:58 67 20 87 L 06/13/21 03:00 70 20 85 L 06/13/21 01:20 60 90 Critical Care Results & Data Vital Signs (Past 12 Hours) Vital Signs Pulse Resp Pulse Ox 06/13/21 11:02 88 L 06/13/21 10:13 92 06/13/21 08:39 22 93 06/13/21 06:49 72 22 88 L 06/13/21 05:08 68 18 94 06/13/21 05:00 63 93 06/13/21 03:58 67 20 87 L 06/13/21 03:00 70 20 85 L 06/13/21 01:20 60 90 Lab & Micro Results (Past 24 Hours) RBC 3.89 M/uL (4.2-5.4) L 06/13/21 WBC 10.05 K/uL (4.8-10.8) 06/13/21 Hgb 11.8 g/dL (12.0-16.0) L 06/13/21 Hct 35.4 % (37-47) L 06/13/21 MCV 91.0 fL (80-100) 06/13/21 MCH 30.3 pg (25-34) 06/13/21 MCHC 33.3 g/dL (32-36) 06/13/21 RDW Standard Deviation 41.7 fL (36.4-46.3) 06/13/21 RDW Coefficient of Variation 12.4 % (11.5-14.5) 06/13/21 Plt Count 174 K/uL (130-400) 06/13/21 MPV 12.2 fL (7.4-10.4) H 06/13/21 Na 139 mmol/L (136-145) 06/13/21 K 3.9 mmol/L (3.5-5.1) 06/13/21 Cl 104 mmol/L (98-107) 06/13/21 CO2 31 mmol/L (21-32) 06/13/21 Anion Gap 4.0 (3-11) 06/13/21 BUN 9 mg/dl (7-18) 06/13/21 Creatinine 0.63 mg/dl (0.6-1.2) 06/13/21 Estimated GFR ( Amer) 106.8 ml/min 06/13/21 Estimated GFR (Non-Af Amer) 92.2 ml/min 06/13/21 BUN/Creatinine Ratio 15.0 (10-20) 06/13/21 Glu 137 mg/dl (70-99) H 06/13/21 Ca 8.6 mg/dl (8.5-10.1) 06/13/21 Mg 2.3 mg/dl (1.8-2.4) 06/13/21 04:44 06/13/21 Calcium Level 8.6 mg/dl (8.5-10.1) 06/13/21 04:44 06/13/21 Blood Gas Barometric Pressure 734.7 mm/Hg 06/13/21 09:30 06/13/21 Arterial Blood pH 7.46 (7.35-7.45) H 06/13/21 09:30 06/13/21 Arterial Blood Partial Pressure CO2 44 mmHg (35-46) 06/13/21 09:30 06/13/21 Arterial Blood Partial Pressure O2 60 mmHg (80-95) L 06/13/21 09:30 06/13/21 Arterial Blood HCO3 31 mmol/L (19-24) H 06/13/21 09:30 06/13/21 Arterial Blood Base Excess 6.2 mEq/L (-9-1.8) H 06/13/21 09:30 06/13/21 Arterial Blood Oxygen Saturation 92.0 % (90-95) 06/13/21 09:30 06/13/21 Blood Gas Oxygen Given 50 06/13/21 09:30 06/13/21 Steven Test Pos (Pos) 06/13/21 09:30 06/13/21 Blood Gas Barometric Pressure 734.7 mm/Hg 06/13/21 09:30 06/13/21 Diagnostic Findings (Past 24 Hours) Chest X-Ray 06/12/21 14:14 XR chest 1V portable CLINICAL HISTORY: Worsening hypoxia. Reassess airspace opacities. COMPARISON STUDY: 06/09/2021 TECHNIQUE: 1 view of the chest FINDINGS: Single frontal view of the chest demonstrates the cardiomediastinal silhouette to be within normal limits. Compared to previous examination, there has been slight improvement in right alveolar and interstitial airspace opacities. However, there is significant interval increase in left alveolar and interstitial opacities. There is no evidence for pleural effusion. There is no evidence for vascular congestion. There is no acute osseous pathology. IMPRESSION: Mild improvement involving interstitial and alveolar opacities on the right with significant interval worsening of interstitial and alveolar opacities on the left. Findings are again characteristic of Covid pneumonia. ACT 112: Negative or not required by law. Electronically signed by: Mason Porras M.D. 06/12/2021 4:29 PM Chest CTA 06/12/21 16:00 CT angio chest PE protocol CLINICAL HISTORY: Shortness of breath and Covid pneumonia. Evaluate for pulmonary embolus COMPARISON STUDY: Portable chest from 06/12/2021 CT DOSE: 344.76 mGy.cm TECHNIQUE: CT Angio of the chest was performed.followed by image post processing with coronal, and sagittal MIP reformats. Contrast Volume: Optiray 320, 120 ml FINDINGS: Vasculature: There is homogeneous perfusion of the pulmonary vasculature bilaterally. No intraluminal filling defects or evidence for pulmonary embolus is seen. Airway: The airway is clear. No endobronchial lesion is identified. Lungs: Extensive groundglass opacities are present throughout both lungs characteristic of a viral type pneumonitis and Covid 19 pneumonia. The lungs are otherwise clear of confluent alveolar opacities, air bronchograms or pulmonary nodules. Pleura: There is no evidence for pleural effusion. There is no evidence for pneumothorax. Mediastinum: There is no evidence for pathologic adenopathy. The heart size is within normal limits. There is mild coronary artery calcification. The thoracic aorta is within normal limits. There is no evidence for pericardial effusion. Upper abdomen:The adrenal glands are normal bilaterally. There is a small hiatal hernia. Osseous structures: There is no acute osseous pathology. Impression: 1. No CTA evidence for pulmonary embolus. 2. Extensive groundglass opacities are present throughout both lungs characteristic of a viral type pneumonitis and Covid 19 pneumonia. ACT 112: Negative or not required by law. Electronically signed by: Mason Porras M.D. 06/12/2021 7:00 PM I & O Totals 24 Hours 06/12/21 06/13/21 06/14/21 06:59 06:59 06:59 Intake Total 700 / 700 Output Total / Balance 699 / 699 Cumulative 06/09/21 09:50 thru 06/13/21 06:00 Intake Total 3160 Output Total 2 Balance 3158 RT Ventilator Mngmt (Last Documented) Ventilator Ordered Settings Respiratory Rate 22 06/13/21 08:39 Fraction of Inspired Oxygen 100 06/13/21 11:02 Ventilator - PT Measurements Respiratory Rate 22 PG Care Time/CCT Total # of Minutes Spent Total Time Spent with Patient: Total time spent is greater than 50% in coordination of care (as documented) at patient's floor/unit and/or counseling patient: Coding Level of Care Code 58684 Initial Inpt Care Lvl 3 Diagnoses ARDS (adult respiratory distress syndrome) J80 COVID-19 U07.1 Hypoxia R09.02
[2021-06-13] MEDS ORDERED: BARICITINIB COMMUNICATION ONE (11:13)
[2021-06-13] MEDS: FUROSEMIDE INJ 20 MG/2 ML VIAL IV SCH (12:07)
[2021-06-13] MEDS: BARICITINIB 2 MG TAB PO SCH (12:07)
--- NOTE | 2021-06-13 14:16 | Hospitalist Progress Note ---
Date of Service June 13, 2021 Assessment & Plan (1) Acute respiratory failure with hypoxia: (2) Pneumonia due to 2019-nCoV: Plan: Currently on dexamethasone Procalcitonin is negative. CT PE is negative for PE Appreciate pulm recommendations CRP trending up. Started on baricitinib and daily lasix Continue proning. Continue HFNC (3) Diarrhea: Plan: Diarrhea secondary to norovirus (tested + 06/07/2021) and COVID-19 Diarrhea currently resolved (4) Fibromyalgia: Plan: Chronic, stable, continue duloxetine, pregabalin, hydrocodone as needed per home regimen (5) DVT prophylaxis: Plan: Lovenox Full code Admission and Anticipated Discharge Date Admission Date: June 09, 2021 Subjective 70-year-old female admitted with acute hypoxic respiratory failure due to Covid pneumonia and norovirus diarrhea Patient seen and examined today. Worsening oxygen requirement. Currently on HFNC and proned Reports cough and shortness of breath. Denies any chest pain, palpitations Denies any fevers, chills, abdominal pain, vomiting Denies dysuria, frequency or urgency Physical Exam Constitutional: + well hydrated; no acute distress Eyes: PERRL, conjunctivae normal, anicteric sclerae ENMT: external ear and nose normal, oropharynx normal Respiratory: On HFNC Diminished breath sounds, crackles posteriorly Cardiovascular: RRR S1 S2 Gastrointestinal (Abdomen): normal bowel sounds, soft, nontender, no hepatosplenomegaly Musculoskeletal: No pedal edema Neurologic: PERRL, EOMI, accommodation nl, no face palsy, no dysarthria Psychiatric: A+Ox3, euthymic affect Results & Data Results & Data ([facility]) Vital Signs (Past 12 Hours) Vital Signs Pulse Resp Pulse Ox 06/13/21 13:32 92 06/13/21 12:36 20 95 06/13/21 11:02 88 L 06/13/21 10:13 92 06/13/21 08:39 22 93 06/13/21 06:49 72 22 88 L 06/13/21 05:08 68 18 94 06/13/21 05:00 63 93 06/13/21 03:58 67 20 87 L 06/13/21 03:00 70 20 85 L Laboratory Results Abnormal lab results 06/13/21 06/13/21 06/13/21 Range/Units 04:44 04:44 04:44 RBC 3.89 L (4.2-5.4) M/uL Hgb 11.8 L (12.0-16.0) g/dL Hct 35.4 L (37-47) % MPV 12.2 H (7.4-10.4) fL D-Dimer 1080 H* (0-500) ug/L FEU ABG pH (7.35-7.45) ABG pO2 (80-95) mmHg ABG HCO3 (19-24) mmol/L ABG Base Excess (-9-1.8) mEq/L Glucose 137 H (70-99) mg/dl C-Reactive Protein 8.42 H (0-0.29) mg/dl NT-Pro-B Natriuret Pep (0-900) pg/ml 06/13/21 06/13/21 Range/Units 04:44 09:30 RBC (4.2-5.4) M/uL Hgb (12.0-16.0) g/dL Hct (37-47) % MPV (7.4-10.4) fL D-Dimer (0-500) ug/L FEU ABG pH 7.46 H (7.35-7.45) ABG pO2 60 L (80-95) mmHg ABG HCO3 31 H (19-24) mmol/L ABG Base Excess 6.2 H (-9-1.8) mEq/L Glucose (70-99) mg/dl C-Reactive Protein (0-0.29) mg/dl NT-Pro-B Natriuret Pep 1563 H (0-900) pg/ml
[2021-06-13] MEDS: traZODone HCL 100 MG TAB PO SCH (20:37)
[2021-06-13] MEDS: MELATONIN 3 MG TAB PO SCH (20:37)
[2021-06-13] MEDS: ATORVASTATIN 20 MG TAB PO SCH (20:37)
[2021-06-14] MEDS: ENOXAPARIN INJ 40 MG/0.4 ML SYR SQ SCH ×2 (06:17→17:48)
[2021-06-14 06:37] LABS: Hematocrit (blood only) 35.2 % (37-47); Hemoglobin 11.7 g/dL (12.0-16.0); Mean Corpuscular Hemoglobin 30.3 pg (25-34); Mean Corpuscular Hgb Conc 33.2 g/dL (32-36); Mean Corpuscular Volume 91.2 fL (80-100); Mean Platelet Volume 12.3 fL (7.4-10.4); Platelet Count 196 K/uL (130-400); RDW Coefficient of Variation 12.1 % (11.5-14.5); RDW Standard Deviation 40.8 fL (36.4-46.3); Red Blood Count 3.86 M/uL (4.2-5.4); White Blood Count 8.24 K/uL (4.8-10.8)
[2021-06-14 07:03] LABS: BUN Creatinine Ratio 20.5 (10-20); Calcium 8.8 mg/dl (8.5-10.1); Creatinine Clr Calc Pharmacy 86.6 ml/min; Est GFR (African American) 105.7 ml/min; Est GFR (Non-African American) 91.2 ml/min; Potassium 3.6 mmol/L (3.5-5.1)
[2021-06-14 07:05] LABS: C Reactive Protein 4.84 mg/dl (0-0.29)
[2021-06-14] MEDS: PREGABALIN 50 MG CAP PO SCH ×3 (08:22→20:36)
[2021-06-14] MEDS: DULoxetine HCL 60 MG CAP PO SCH (08:22)
[2021-06-14] MEDS: FUROSEMIDE INJ 20 MG/2 ML VIAL IV SCH (08:23)
[2021-06-14] MEDS: dexAMETHasone 6 MG in SYRINGE 0 ML IV SCH (08:24)
[2021-06-14] MEDS: BARICITINIB 2 MG TAB PO SCH (09:20)
[2021-06-14] MEDS ORDERED: GLYCERIN ADULT 12 SUPP/BOX SUPP PR PRN (11:38)
[2021-06-14] MEDS: ACETAMINOPHEN 325 MG TAB PO PRN ×2 (12:31→21:23)
[2021-06-14] MEDS: POLYETHYLENE (MIRALAX) 17 GM PACK PO PRN (14:56)
--- NOTE | 2021-06-14 17:14 | Hospitalist Progress Note ---
Date of Service June 14, 2021 Assessment & Plan (1) Acute respiratory failure with hypoxia: Plan: Escalating oxygen needs 2/2 covid pneumonia. Transfer to PCU (2) Pneumonia due to 2019-nCoV: Plan: Cont dexamethasone. Was started on baricitinib per EUA criteria yesterday, however, declines to continue this today after considering the risks/benefits further CTA was negative for PE on (3) Diarrhea: Plan: Diarrhea secondary to norovirus (tested + 06/07/2021) and COVID-19 Diarrhea currently resolved, patient is now asking for laxative. Reports today that she "has not had a BM in one week" however, that is not true. Recent excessive diarrhea 2/2 infection, actually. Caution with miralax (4) Fibromyalgia: Plan: Chronic, stable, continue duloxetine, pregabalin, hydrocodone as needed per home regimen (5) DVT prophylaxis: Plan: Lovenox Full code Dispo-transfer to PCU DO Alexandra Recinos Hospitalist Admission and Anticipated Discharge Date Admission Date: June 09, 2021 Subjective 70-year-old female admitted with acute hypoxic respiratory failure due to Covid pneumonia and norovirus diarrhea Hi flow oxygen via nasal canula plus oxymask in place patient is confused but oriented she asked for miralax today stating she hadn't had a BM in one week. However, she recently had norovirus with at least 4 BMs on monday and additional diarrhea on monday per nursing. She doesn't remember this +cough Review of Systems Review of Systems: All systems were reviewed and negative except as indicated above. Physical Exam Physical Exam: CONSTITUTIONAL: WNWD, vitals as above, generally ill appearing, NAD EYES: normal conjunctivae, no scleral icterus, ENT: external ear and nose normal, NECK: trachea midline, no lymphadenopathy, normal thyroid RESPIRATORY: clear to auscultation bilaterally, no crackles, rales or wheezes, normal respiratory effort CARDIOVASCULAR: regular rate and rhythm, S1 and 2 heard without murmurs, gallops or rubs, no JVD, no peripheral edema CHEST: inspection of chest was normal GASTROINTESTINAL: soft, nontender, no hepatomegaly, no guarding MUSCULOSKELETAL: strength 5/5 throughout, head is normocephalic and atraumatic, neck supple, normal palpation of chest wall without tenderness SKIN: warm and dry, NEUROLOGIC: CN 2-12 grossly intact, no sensory deficit, normal cognition, normal speech, no tremor PSYCHIATRIC: alert cooperative and oriented to person, place and time. Results & Data Results & Data ([facility]) Vital Signs (Past 12 Hours) Vital Signs Temp Pulse Resp BP Pulse Ox 06/14/21 15:29 88 22 93 06/14/21 14:58 36.8 C 70 20 121/68 96 06/14/21 11:42 66 22 91 06/14/21 08:11 36.8 C 80 20 134/76 94 06/14/21 05:19 74 94 Laboratory Results Short CBC 06/14/21 Range/Units 06:01 WBC 8.24 (4.8-10.8) K/uL Hgb 11.7 L (12.0-16.0) g/dL Hct 35.2 L (37-47) % Plt Count 196 (130-400) K/uL BMP 06/14/21 06:01 Sodium 138 Potassium 3.6 Chloride 102 Carbon Dioxide 32 BUN 13 Creatinine 0.65 Glucose 129 H Calcium 8.8 Medications Administered Current Inpatient Medications Acetaminophen (Acetaminophen 325 Mg Tab) 650 mg PO Q4H PRN PRN Reason: Pain or Fever Stop: 07/09/21 18:00 Last Admin: 06/14/21 12:31 Dose: 650 mg Documented by: Hydrocodone Bitart/Acetaminophen (Hydrocodone/Acetamophen 5/325mg Tab) 1 tab PO Q6H PRN PRN Reason: Moderate Pain Stop: 06/23/21 18:00 Last Admin: 06/12/21 12:36 Dose: 1 tab Documented by: Atorvastatin Calcium (Atorvastatin 20 Mg Tab) 20 mg PO HS [facility] Stop: 07/09/21 20:59 Last Admin: 06/13/21 20:37 Dose: 20 mg Documented by: Baricitinib (Baricitinib 2 Mg Tab) 4 mg PO DAILY [facility] Last Admin: 06/14/21 09:20 Dose: Not Given Documented by: Benzonatate (Benzonatate 100 Mg Capsule) 100 mg PO TID PRN PRN Reason: Cough Stop: 07/11/21 21:17 Last Admin: 06/13/21 07:28 Dose: 100 mg Documented by: Duloxetine HCl (Duloxetine Hcl 60 Mg Cap) 60 mg PO DAILY [facility] Stop: 07/10/21 08:59 Last Admin: 06/14/21 08:22 Dose: 60 mg Documented by: Enoxaparin Sodium (Enoxaparin Inj 40 Mg/0.4 Ml Syr) 40 mg SQ Q12H [facility] Stop: 07/09/21 18:59 Last Admin: 06/14/21 06:17 Dose: 40 mg Documented by: Furosemide (Furosemide Inj 20 Mg/2 Ml Vial) 20 mg IV DAILY [facility] Stop: 07/13/21 11:14 Last Admin: 06/14/21 08:23 Dose: 20 mg Documented by: Glycerin (Glycerin Adult 12 Supp/Box Supp) 1 supp SD DAILY PRN PRN Reason: Constipation Stop: 07/14/21 11:37 Guaifenesin (Guaifenesin Sugar Free 200 Mg/10 Ml Udc) 200 mg PO Q6H PRN PRN Reason: Cough Stop: 07/11/21 21:17 Last Admin: 06/13/21 07:27 Dose: 200 mg Documented by: Dexamethasone 6 mg/ Syringe 1.5 mls @ 1 mls/min IV DAILY [facility] Stop: 06/19/21 18:00 Last Admin: 06/14/21 08:24 Dose: 1 mls/min Documented by: Loperamide HCl (Loperamide Hcl 2 Mg Cap) 2 mg PO UD PRN PRN Reason: Diarrhea Stop: 07/11/21 12:06 Melatonin (Melatonin 3 Mg Tab) 3 mg PO HS [facility] Stop: 07/09/21 20:59 Last Admin: 06/13/21 20:37 Dose: 3 mg Documented by: Ondansetron HCl (Ondansetron Inj 2 Mg/Ml 2 Ml Vial) 4 mg IV Q6H PRN PRN Reason: Nausea Stop: 07/09/21 18:00 Last Admin: 06/13/21 20:33 Dose: 4 mg Documented by: Polyethylene Glycol (Polyethylene (Miralax) 17 Gm Pack) 17 gm PO DAILY PRN PRN Reason: Constipation Stop: 07/14/21 11:37 Last Admin: 06/14/21 14:56 Dose: 17 gm Documented by: Pregabalin (Pregabalin 50 Mg Cap) 50 mg PO TID [facility] Stop: 07/09/21 20:59 Last Admin: 06/14/21 14:56 Dose: 50 mg Documented by: Trazodone HCl (Trazodone Hcl 100 Mg Tab) 100 mg PO [facility] Stop: 07/09/21 20:59 Last Admin: 06/13/21 20:37 Dose: 100 mg Documented by:
[2021-06-14] MEDS: MELATONIN 3 MG TAB PO SCH (20:34)
[2021-06-14] MEDS: ATORVASTATIN 20 MG TAB PO SCH (20:34)
[2021-06-14] MEDS: guaiFENesin SUGAR FREE 200 MG/10 ML UDC PO PRN (20:35)
[2021-06-14] MEDS: traZODone HCL 100 MG TAB PO SCH (20:35)
[2021-06-15] MEDS: ACETAMINOPHEN 325 MG TAB PO PRN ×2 (05:36→22:01)
[2021-06-15 06:38] LABS: Creatinine Clr Calc Pharmacy 81.6 ml/min; Est GFR (African American) 103.7 ml/min; Est GFR (Non-African American) 89.4 ml/min
[2021-06-15] MEDS: ENOXAPARIN INJ 40 MG/0.4 ML SYR SQ SCH ×2 (08:08→22:00)
[2021-06-15] MEDS: dexAMETHasone 6 MG in SYRINGE 0 ML IV SCH (08:08)
[2021-06-15] MEDS: FUROSEMIDE INJ 20 MG/2 ML VIAL IV SCH (08:08)
[2021-06-15] MEDS: PREGABALIN 50 MG CAP PO SCH ×3 (08:08→22:00)
[2021-06-15] MEDS: DULoxetine HCL 60 MG CAP PO SCH (08:08)
--- NOTE | 2021-06-15 11:32 | Hospitalist Progress Note ---
Date of Service June 15, 2021 Assessment & Plan (1) Acute respiratory failure with hypoxia: Plan: Escalated oxygen needs to hi flow, now with episode of desaturation this morning, she is on max oxygen therapy. Cont to prone all day if possible to avoid bipap and intubation. Strict bedrest. NPO at this time. She verbalized understanding about the mortality risk of her current situation and was presented with options. At this time she is ok with ventilation if needed. Family and primary nurse was updated. (2) Pneumonia due to 2019-nCoV: Plan: Cont dexamethasone. Was started on baricitinib per EUA criteria, however, declines to continue this today after considering the risks/benefits further CTA was negative for PE on 06/12 (3) Diarrhea: Plan: Diarrhea secondary to norovirus (tested + 06/07/2021) and COVID-19 Diarrhea currently resolved (4) Fibromyalgia: Plan: Chronic, stable, continue duloxetine, pregabalin, hydrocodone as needed per home regimen (5) DVT prophylaxis: Plan: Lovenox Full code Dispo-cont PCU status. Borderline patient with worsened respiratory failure. May need to progress to bipap and subsequent intubation later today if she cannot maintain oxygen saturation >88%. Linda Zuniga DO [facility] Hospitalist Admission and Anticipated Discharge Date Admission Date: June 09, 2021 Subjective 70-year-old female admitted with acute hypoxic respiratory failure due to Covid pneumonia and norovirus diarrhea Hi flow oxygen via nasal canula plus oxymask in place Desaturation episode this morning, pulse ox at 77% on 45LPM 90% hi flow. Settings increased by nurse to 55LPM 100% with pulse ox in the mid 80s. respiratory was paged and BIPAP was suggested She is currently lying on her right side and is oxygenating 92% on current settings I verified the patient was oriented. I spoke with the patient and her [id number] about the risk of mortality with intubation and the next step of treatment, which would be BIPAP. She verbalized understanding of the possible long-term ramifications of ARDS from covid pneumonia including possible tracheostomy and/or hemodialysis. She is confused and states she wants to speak with her DIL DIL confirmed that she will reach out to her , patient's son, and discuss first. I updated the primary nurse some cough still present denies pain denies diarrhea tolerating PO afebrile Review of Systems Review of Systems: All systems were reviewed and negative except as indicated above. Physical Exam Physical Exam: CONSTITUTIONAL: WNWD, vitals as above, generally ill appearing, NAD EYES: normal conjunctivae, no scleral icterus, ENT: external ear and nose normal, NECK: trachea midline, no lymphadenopathy, normal thyroid RESPIRATORY: clear to auscultation bilaterally, no crackles, rales or wheezes, normal respiratory effort CARDIOVASCULAR: regular rate and rhythm, S1 and 2 heard without murmurs, gallops or rubs, no JVD, no peripheral edema CHEST: inspection of chest was normal GASTROINTESTINAL: soft, nontender, no hepatomegaly, no guarding MUSCULOSKELETAL: strength 5/5 throughout, head is normocephalic and atraumatic, neck supple, normal palpation of chest wall without tenderness SKIN: warm and dry, NEUROLOGIC: CN 2-12 grossly intact, no sensory deficit, normal cognition, normal speech, no tremor PSYCHIATRIC: alert cooperative and oriented to person, place and time. Results & Data Results & Data ([facility]) Vital Signs (Past 12 Hours) Vital Signs Temp Pulse Pulse Resp BP Pulse Ox 06/15/21 09:53 54 L 06/15/21 08:01 64 18 92 06/15/21 07:52 36.8 C 63 22 134/70 93 06/15/21 03:49 36.8 C 66 24 114/63 94 06/15/21 03:35 72 20 90 06/14/21 23:35 20 90 Laboratory Results [facility] 06/15/21 05:26 Creatinine 0.69 Medications Administered Current Inpatient Medications Acetaminophen (Acetaminophen 325 Mg Tab) 650 mg PO Q4H PRN PRN Reason: Pain or Fever Stop: 07/09/21 18:00 Last Admin: 06/15/21 05:36 Dose: 650 mg Documented by: Hydrocodone Bitart/Acetaminophen (Hydrocodone/Acetamophen 5/325mg Tab) 1 tab PO Q6H PRN PRN Reason: Moderate Pain Stop: 06/23/21 18:00 Last Admin: 06/12/21 12:36 Dose: 1 tab Documented by: Atorvastatin Calcium (Atorvastatin 20 Mg Tab) 20 mg PO HS [facility] Stop: 07/09/21 20:59 Last Admin: 06/14/21 20:34 Dose: 20 mg Documented by: Benzonatate (Benzonatate 100 Mg Capsule) 100 mg PO TID PRN PRN Reason: Cough Stop: 07/11/21 21:17 Last Admin: 06/13/21 07:28 Dose: 100 mg Documented by: Duloxetine HCl (Duloxetine Hcl 60 Mg Cap) 60 mg PO DAILY [facility] Stop: 07/10/21 08:59 Last Admin: 06/15/21 08:08 Dose: 60 mg Documented by: Enoxaparin Sodium (Enoxaparin Inj 40 Mg/0.4 Ml Syr) 40 mg SQ Q12H [facility] Stop: 07/09/21 18:59 Last Admin: 06/15/21 08:08 Dose: 40 mg Documented by: Furosemide (Furosemide Inj 20 Mg/2 Ml Vial) 20 mg IV DAILY [facility] Stop: 07/13/21 11:14 Last Admin: 06/15/21 08:08 Dose: 20 mg Documented by: Glycerin (Glycerin Adult 12 Supp/Box Supp) 1 supp [place] DAILY PRN PRN Reason: Constipation Stop: 07/14/21 11:37 Guaifenesin (Guaifenesin Sugar Free 200 Mg/10 Ml Udc) 200 mg PO Q6H PRN PRN Reason: Cough Stop: 07/11/21 21:17 Last Admin: 06/14/21 20:35 Dose: 200 mg Documented by: Dexamethasone 6 mg/ Syringe 1.5 mls @ 1 mls/min IV DAILY [facility] Stop: 06/19/21 18:00 Last Admin: 06/15/21 08:08 Dose: 1 mls/min Documented by: Loperamide HCl (Loperamide Hcl 2 Mg Cap) 2 mg PO UD PRN PRN Reason: Diarrhea Stop: 07/11/21 12:06 Melatonin (Melatonin 3 Mg Tab) 3 mg PO HS [facility] Stop: 07/09/21 20:59 Last Admin: 06/14/21 20:34 Dose: 3 mg Documented by: Ondansetron HCl (Ondansetron Inj 2 Mg/Ml 2 Ml Vial) 4 mg IV Q6H PRN PRN Reason: Nausea Stop: 07/09/21 18:00 Last Admin: 06/13/21 20:33 Dose: 4 mg Documented by: Polyethylene Glycol (Polyethylene (Miralax) 17 Gm Pack) 17 gm PO DAILY PRN PRN Reason: Constipation Stop: 07/14/21 11:37 Last Admin: 06/14/21 14:56 Dose: 17 gm Documented by: Pregabalin (Pregabalin 50 Mg Cap) 50 mg PO TID JOSÉ ANTONIO Stop: 07/09/21 20:59 Last Admin: 06/15/21 08:08 Dose: 50 mg Documented by: Trazodone HCl (Trazodone Hcl 100 Mg Tab) 100 mg PO HS [facility] Stop: 07/09/21 20:59 Last Admin: 06/14/21 20:35 Dose: 100 mg Documented by:
[2021-06-15] MEDS: traZODone HCL 100 MG TAB PO SCH (22:00)
[2021-06-15] MEDS: MELATONIN 3 MG TAB PO SCH (22:00)
[2021-06-15] MEDS: ATORVASTATIN 20 MG TAB PO SCH (22:01)
[2021-06-16] MEDS: ENOXAPARIN INJ 40 MG/0.4 ML SYR SQ SCH ×2 (06:37→18:21)
[2021-06-16 06:47] LABS: Hematocrit (blood only) 37.6 % (37-47); Hemoglobin 12.7 g/dL (12.0-16.0); Mean Corpuscular Hemoglobin 30.5 pg (25-34); Mean Corpuscular Hgb Conc 33.8 g/dL (32-36); Mean Corpuscular Volume 90.4 fL (80-100); Mean Platelet Volume 12.4 fL (7.4-10.4); Platelet Count 215 K/uL (130-400); RDW Coefficient of Variation 11.7 % (11.5-14.5); RDW Standard Deviation 38.4 fL (36.4-46.3); Red Blood Count 4.16 M/uL (4.2-5.4); White Blood Count 13.57 K/uL (4.8-10.8)
[2021-06-16] MEDS: dexAMETHasone 6 MG in SYRINGE 0 ML IV SCH (07:20)
[2021-06-16] MEDS: FUROSEMIDE INJ 20 MG/2 ML VIAL IV SCH (07:21)
[2021-06-16] MEDS: DULoxetine HCL 60 MG CAP PO SCH (07:21)
[2021-06-16] MEDS: PREGABALIN 50 MG CAP PO SCH ×3 (07:21→22:01)
[2021-06-16 07:23] LABS: BUN Creatinine Ratio 24.2 (10-20); Calcium 8.9 mg/dl (8.5-10.1); Creatinine Clr Calc Pharmacy 85.2 ml/min; Est GFR (African American) 105.2 ml/min; Est GFR (Non-African American) 90.8 ml/min; Potassium 3.9 mmol/L (3.5-5.1)
[2021-06-16 07:27] LABS: C Reactive Protein 7.79 mg/dl (0-0.29)
[2021-06-16] MEDS: ACETAMINOPHEN 325 MG TAB PO PRN ×2 (07:29→22:01)
--- NOTE | 2021-06-16 18:34 | Hospitalist Progress Note ---
Date of Service June 16, 2021 Assessment & Plan (1) Acute respiratory failure with hypoxia: (2) Pneumonia due to 2019-nCoV: Plan: (1) Acute respiratory failure with hypoxia: she is on max oxygen therapy. Cont to prone all day if possible to avoid bipap and intubation. Strict bedrest. Soft diet. Per prior hospitalist attending, she verbalized understanding about the mortality risk of her current situation and was presented with options. At this time she is ok with ventilation if needed. Family and primary nurse was updated. Patient seems uninterested in doing incentive spirometer and flutter valve, consult, will continue to encourage doing it every day. Wean down oxygen as tolerated, continue with CPAP overnight and as needed. (2) Pneumonia due to nCoV: Patient not vaccinated, has signs and symptoms since May 30. BNP on 06/13 was 1563, down trended to 432 on 06/16. Cont dexamethasone 06/09. Was started on baricitinib per EUA criteria, however, declined to continue this after considering the risks/benefits further CTA was negative for PE on 06/12 Lasix as needed, strict I's and O's, keep patient on drier unloader side. (3) Diarrhea: Diarrhea secondary to norovirus (tested + 06/07/2021) and COVID-19 Diarrhea currently resolved (4) Fibromyalgia: Chronic, stable, continue duloxetine, pregabalin, hydrocodone as needed per home regimen (5) DVT prophylaxis: Lovenox Full code Dispo-cont PCU status. Borderline patient with worsened respiratory failure. Closely was for need for intubation if she cannot maintain oxygen saturation >88% on BiPAP/CPAP should the need arise. Admission and Anticipated Discharge Date Admission Date: June 09, 2021 Subjective Patient was lying in bed, on 60 L high flow at 90%, NAD, no new acute events overnight. Per RN, patient was on CPAP overnight, patient is doing better today. At bedside exam discussion with patient, patient seems to be not doing incentive spirometry and flutter valve as often as required, confirmed with RN. Patient advised to do incentive spirometer/flutter valve every hour as directed. Higher temperature noted in the morning. Patient denies feverish feeling/headache/dizziness/chest pain/palpitation/other review of symptoms. Physical Exam Physical Exam: GENERAL: Alert and oriented x3. NAD, on 60L at 90%, flat affect. HEENT: No pallor, no icterus. Pupils equal, round and reactive to light. Oral mucosa moist. NECK: No JVD, no neck masses. HEART: S1 and S2 heard. Regular rate and rhythm. No murmur, no gallop. RESPIRATORY SYSTEM: Normal AP diameter. No accessory muscle use. No wheezing, + b/l crackles. Decreased breath sounds ABDOMEN: Soft, bowel sounds present, nontender, no distention. CENTRAL NERVOUS SYSTEM: No facial droop. Speech is clear. Obeys simple commands. Moves extremities. EXTREMITIES: No edema, no erythema seen. Results & Data Results & Data ([facility]) Vital Signs (Past 12 Hours) Vital Signs Temp Pulse Resp BP Pulse Ox 06/16/21 16:29 37.4 C 06/16/21 15:10 38 C H 69 20 136/70 93 06/16/21 12:10 70 24 92 06/16/21 11:26 37.5 C 75 20 110/57 L 93 06/16/21 08:30 37.8 C H 06/16/21 07:36 68 24 92 06/16/21 07:24 38.4 C H 82 19 109/47 L 98
[2021-06-16] MEDS: traZODone HCL 100 MG TAB PO SCH (22:01)
[2021-06-16] MEDS: ATORVASTATIN 20 MG TAB PO SCH (22:01)
[2021-06-16] MEDS: MELATONIN 3 MG TAB PO SCH (22:01)
[2021-06-16] MEDS: ONDANSETRON INJ 2 MG/ML 2 ML VIAL IV PRN (22:11)
[2021-06-17] MEDS: ENOXAPARIN INJ 40 MG/0.4 ML SYR SQ SCH ×2 (06:29→18:15)
[2021-06-17 06:34] LABS: Hematocrit (blood only) 35.2 % (37-47); Mean Corpuscular Hemoglobin 30.5 pg (25-34); Mean Corpuscular Hgb Conc 34.1 g/dL (32-36); Mean Corpuscular Volume 89.6 fL (80-100); Mean Platelet Volume 12.3 fL (7.4-10.4); Platelet Count 221 K/uL (130-400); RDW Coefficient of Variation 11.5 % (11.5-14.5); RDW Standard Deviation 38.1 fL (36.4-46.3); Red Blood Count 3.93 M/uL (4.2-5.4); White Blood Count 12.31 K/uL (4.8-10.8)
[2021-06-17 07:10] LABS: BUN Creatinine Ratio 26.1 (10-20); Calcium 8.8 mg/dl (8.5-10.1); Creatinine Clr Calc Pharmacy 82.7 ml/min; Est GFR (African American) 104.2 ml/min; Est GFR (Non-African American) 89.9 ml/min; Potassium 3.7 mmol/L (3.5-5.1)
[2021-06-17] MEDS: dexAMETHasone 6 MG in SYRINGE 0 ML IV SCH (08:50)
[2021-06-17] MEDS: PREGABALIN 50 MG CAP PO SCH ×3 (08:50→19:54)
[2021-06-17] MEDS: FUROSEMIDE INJ 20 MG/2 ML VIAL IV SCH (08:51)
[2021-06-17] MEDS: DULoxetine HCL 60 MG CAP PO SCH (08:51)
[2021-06-17] MEDS: ONDANSETRON INJ 2 MG/ML 2 ML VIAL IV PRN (10:31)
[2021-06-17] MEDS: POLYETHYLENE (MIRALAX) 17 GM PACK PO PRN (18:16)
--- NOTE | 2021-06-17 18:39 | Hospitalist Progress Note ---
Date of Service June 17, 2021 Assessment & Plan (1) Acute respiratory failure with hypoxia: (2) Pneumonia due to 2019-nCoV: Plan: (1) Acute respiratory failure with hypoxia: Currently requiring 40 L at 100%.. Cont to prone all day if possible to avoid bipap and intubation. Strict bedrest. Soft diet. Per prior hospitalist attending, she verbalized understanding about the mortality risk of her current situation and was presented with options. At this time she is ok with ventilation if needed. Family and primary nurse was updated. Patient seems uninterested in doing incentive spirometer and flutter valve, will continue to encourage doing it every day. Wean down oxygen as tolerated, continue with CPAP overnight and as needed. (2) Pneumonia due to nCoV: Patient not vaccinated, has signs and symptoms since May 30. BNP on 06/13 was 1563, down trended to 432 on 06/16. Cont dexamethasone 06/09. Was started on baricitinib per EUA criteria, however, declined to continue this after considering the risks/benefits further CTA was negative for PE on 06/12. Pro-Abilio negative. Lasix as needed, strict I's and O's, keep patient on drier feeder side. (3) Diarrhea: Diarrhea secondary to norovirus (tested + 06/07/2021) and COVID-19 Diarrhea currently resolved (4) Fibromyalgia: Chronic, stable, continue duloxetine, pregabalin, hydrocodone as needed per home regimen (5) DVT prophylaxis: Lovenox Full code Dispo-cont PCU status. Borderline patient with worsened respiratory failure. Closely watch for need for intubation if she cannot maintain oxygen saturation >88% on BiPAP/CPAP should the need arise. Admission and Anticipated Discharge Date Admission Date: June 09, 2021 Subjective Patient was lying in bed, on 40 L high flow at 100%, NAD, no new acute events overnight. Patient was proning. Per RN, uninterested in doing incentive spirometer and proning and infact taking care of herself. Patient again counseled on the importance of incentive spirometer and flutter valve, and the frequency she needs to be doing it. Patient denies feverish feeling/headache/dizziness/chest pain/palpitation/other review of symptoms. No further high temperatures noted overnight and today. Physical Exam Physical Exam: GENERAL: Alert and oriented x3. NAD, on 40L at 100%, flat affect. HEENT: No pallor, no icterus. Pupils equal, round and reactive to light. Oral mucosa moist. NECK: No JVD, no neck masses. HEART: S1 and S2 heard. Regular rate and rhythm. No murmur, no gallop. RESPIRATORY SYSTEM: Normal AP diameter. No accessory muscle use. No wheezing, + b/l crackles -->less appreciated today. Decreased breath sounds ABDOMEN: Soft, bowel sounds present, nontender, no distention. CENTRAL NERVOUS SYSTEM: No facial droop. Speech is clear. Obeys simple commands. Moves extremities. EXTREMITIES: No edema, no erythema seen. Results & Data Results & Data ([facility]) Vital Signs (Past 12 Hours) Vital Signs Temp Pulse Pulse Resp BP Pulse Ox 06/17/21 16:07 78 20 90 06/17/21 15:44 37.5 C 76 20 123/73 90 06/17/21 11:49 77 20 93 06/17/21 11:21 37.5 C 77 20 121/64 87 L 06/17/21 07:27 36.7 C 67 19 95/56 L 93 06/17/21 07:09 62 24 91
[2021-06-17] MEDS: traZODone HCL 100 MG TAB PO SCH (19:54)
[2021-06-17] MEDS: ATORVASTATIN 20 MG TAB PO SCH (19:54)
[2021-06-17] MEDS: ACETAMINOPHEN 325 MG TAB PO PRN (20:14)
[2021-06-17] MEDS: MELATONIN 3 MG TAB PO SCH (20:14)
[2021-06-18] MEDS: ENOXAPARIN INJ 40 MG/0.4 ML SYR SQ SCH ×2 (06:29→18:11)
[2021-06-18] MEDS: PREGABALIN 50 MG CAP PO SCH ×3 (09:03→19:52)
[2021-06-18] MEDS: BENZONATATE 100 MG CAPSULE PO PRN (09:03)
[2021-06-18] MEDS: dexAMETHasone 6 MG in SYRINGE 0 ML IV SCH (09:03)
[2021-06-18] MEDS: DULoxetine HCL 60 MG CAP PO SCH (09:04)
[2021-06-18] MEDS: POLYETHYLENE (MIRALAX) 17 GM PACK PO PRN (09:20)
[2021-06-18] MEDS: FUROSEMIDE INJ 20 MG/2 ML VIAL IV SCH (09:20)
[2021-06-18] MEDS: ACETAMINOPHEN 325 MG TAB PO PRN (13:33)
--- NOTE | 2021-06-18 15:13 | Hospitalist Progress Note ---
Date of Service June 18, 2021 Assessment & Plan (1) Acute respiratory failure with hypoxia: (2) Pneumonia due to 2019-nCoV: Plan: (1) Acute respiratory failure with hypoxia: Currently requiring 40 L at 100%.. Cont to prone all day if possible to avoid bipap and intubation. Strict bedrest. Soft diet. Patient desaturates when in supine position at 40 L and also with movement, maintaining saturation during prone position. Johnson catheter in place due to desaturation with movement. Patient eating better lately, no bowel movement since last 7 days but her appetite has been very low in the past week. Will use bowel regimen and continue to monitor, no belly pain or distention, patient moving gas. Per prior hospitalist attending, she verbalized understanding about the mortality risk of her current situation and was presented with options. At this time she is ok with ventilation if needed. Family and primary nurse was updated. Patient again counseled regarding incentive spirometer and flutter valve, will continue to encourage doing it every day. Wean down oxygen as tolerated, continue with CPAP overnight and as needed. (2) Pneumonia due to nCoV: Patient not vaccinated, has signs and symptoms since May 30. BNP on 06/13 was 1563, down trended to 432 on 06/16. Cont dexamethasone 06/09. Was started on baricitinib per EUA criteria, however, declined to continue this after considering the risks/benefits further CTA was negative for PE on 06/12. Pro-Abilio negative. Lasix 20 mg IV daily, strict I's and O's, keep patient on continuous conveyor screen drier side. Monitor BMP daily. (3) Diarrhea: Diarrhea secondary to norovirus (tested + 06/07/2021) and COVID-19 Diarrhea currently resolved (4) Fibromyalgia: Chronic, stable, continue duloxetine, pregabalin, hydrocodone as needed per home regimen (5) DVT prophylaxis: Lovenox Full code Dispo-cont PCU status. Borderline patient with worsened respiratory failure. Closely watch for need for intubation if she cannot maintain oxygen saturation >88% on BiPAP/CPAP should the need arise. Admission and Anticipated Discharge Date Admission Date: June 09, 2021 Subjective Patient was lying prone in bed, on 40 L high flow at 100%, NAD, no new acute events overnight. Per RN, patient is eating better today, more cooperative today and no new acute events overnight. Patient again counseled on the importance of incentive spirometer and flutter valve, and the frequency she needs to be doing it. Per RN, patient desaturates on 40 L of when lying supine. Patient denies feverish feeling/headache/dizziness/chest pain/palpitation/other review of symptoms. Patient reports feeling somewhat better. Physical Exam Physical Exam: GENERAL: Alert and oriented x3. NAD, on 40L at 100%. HEENT: No pallor, no icterus. Pupils equal, round and reactive to light. Oral mucosa moist. NECK: No JVD, no neck masses. HEART: S1 and S2 heard. Regular rate and rhythm. No murmur, no gallop. RESPIRATORY SYSTEM: Normal AP diameter. No accessory muscle use. No wheezing, + b/l crackles -->decreasing. Decreased breath sounds persistent ABDOMEN: Soft, bowel sounds present, nontender, no distention. CENTRAL NERVOUS SYSTEM: No facial droop. Speech is clear. Obeys simple commands. Moves extremities. EXTREMITIES: No edema, no erythema seen. Results & Data Results & Data ([facility]) Vital Signs (Past 12 Hours) Vital Signs Temp Pulse Pulse Resp BP Pulse Ox 06/18/21 11:53 76 20 93 06/18/21 11:37 37.7 C H 77 25 H 116/63 96 06/18/21 10:15 59 L 06/18/21 08:00 69 20 92 06/18/21 07:21 36.8 C 60 19 101/59 L 88 L 06/18/21 04:35 92 06/18/21 04:25 36.8 C 65 18 116/66 87 L 06/18/21 03:59 69 20 95
[2021-06-18] MEDS: HYDROCODONE/ACETAMOPHEN 5/325MG TAB PO PRN (19:52)
[2021-06-18] MEDS: traZODone HCL 100 MG TAB PO SCH (19:52)
[2021-06-18] MEDS: ATORVASTATIN 20 MG TAB PO SCH (19:52)
[2021-06-18] MEDS: MELATONIN 3 MG TAB PO SCH (19:52)
[2021-06-19] MEDS: ENOXAPARIN INJ 40 MG/0.4 ML SYR SQ SCH ×2 (06:44→19:47)
[2021-06-19 07:09] LABS: Calcium 8.7 mg/dl (8.5-10.1); Creatinine Clr Calc Pharmacy 90.7 ml/min; Est GFR (African American) 107.4 ml/min; Est GFR (Non-African American) 92.7 ml/min; Potassium 4.1 mmol/L (3.5-5.1)
[2021-06-19] MEDS: DULoxetine HCL 60 MG CAP PO SCH (08:08)
[2021-06-19] MEDS: ONDANSETRON INJ 2 MG/ML 2 ML VIAL IV PRN (08:08)
[2021-06-19] MEDS: PREGABALIN 50 MG CAP PO SCH ×3 (08:08→19:46)
[2021-06-19] MEDS: FUROSEMIDE INJ 20 MG/2 ML VIAL IV SCH (08:08)
[2021-06-19] MEDS: dexAMETHasone 6 MG in SYRINGE 0 ML IV SCH (08:08)
[2021-06-19] MEDS: ACETAMINOPHEN 325 MG TAB PO PRN (13:07)
[2021-06-19] MEDS ORDERED: FUROSEMIDE INJ 20 MG/2 ML VIAL IV ONE (16:54)
--- NOTE | 2021-06-19 17:01 | Hospitalist Progress Note ---
Date of Service June 19, 2021 Assessment & Plan (1) Acute respiratory failure with hypoxia: (2) Pneumonia due to 2019-nCoV: Plan: (1) Acute respiratory failure with hypoxia: Currently requiring 50 L at 89%.. Cont to prone 15hr/day if possible to avoid bipap and intubation. Strict bedrest. Soft diet. Patient desaturates when in supine position at 40 L and also with movement, maintaining saturation during prone position. Johnson catheter in place due to desaturation with movement. Patient eating better lately, no bowel movement since last 7/8 days but her appetite has been very low in the past week. Will use bowel regimen and continue to monitor, no belly pain or distention, patient moving gas. Per prior hospitalist attending, she verbalized understanding about the mortality risk of her current situation and was presented with options. At this time she is ok with ventilation if needed. Family and primary nurse was updated. Patient again counseled regarding incentive spirometer and flutter valve, will continue to encourage doing it every day. Wean down oxygen as tolerated, continue with CPAP overnight and as needed. (2) Pneumonia due to 2018-nCoV: Patient not vaccinated, has signs and symptoms since May 30. BNP on 06/13 was 1563, down trended to 432 on 06/16. Cont dexamethasone 06/09. Was started on baricitinib per EUA criteria, however, declined to continue this after considering the risks/benefits further CTA was negative for PE on 06/12. Pro-Abilio negative. Lasix 20 mg IV daily, strict I's and O's, keep patient on rice drier side. Monitor BMP daily. (3) Diarrhea: Diarrhea secondary to norovirus (tested + 06/07/2021) and COVID-19 Diarrhea currently resolved (4) Fibromyalgia: Chronic, stable, continue duloxetine, pregabalin, hydrocodone as needed per home regimen (5) DVT prophylaxis: Lovenox Full code Dispo-cont PCU status. Borderline patient with worsened respiratory failure. Closely watch for need for intubation if she cannot maintain oxygen saturation >88% on BiPAP/CPAP should the need arise. Admission and Anticipated Discharge Date Admission Date: June 09, 2021 Subjective Patient was lying prone in bed, on 50 L high flow at 89%, NAD. 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 But she did not have any chest pain or palpitation at the moment. Patient is eating okay, has not had bowel movement since few days. Patient again counseled on the importance of incentive spirometer and flutter valve, and the frequency she needs to be doing it. Patient denies feverish feeling/headache/dizziness/chest pain/palpitation/other review of symptoms. Patient reports feeling somewhat better/similar to yesterday. Physical Exam Physical Exam: GENERAL: Alert and oriented x3. NAD, on 50L at 89%. HEENT: No pallor, no icterus. Pupils equal, round and reactive to light. Oral mucosa moist. NECK: No JVD, no neck masses. HEART: S1 and S2 heard. Regular rate and rhythm. No murmur, no gallop. RESPIRATORY SYSTEM: Normal AP diameter. No accessory muscle use. No wheezing, no crackles. Decreased breath sounds persistent ABDOMEN: Soft, bowel sounds present, nontender, no distention. CENTRAL NERVOUS SYSTEM: No facial droop. Speech is clear. Obeys simple commands. Moves extremities. EXTREMITIES: No edema, no erythema seen. Results & Data Results & Data ([facility]) Vital Signs (Past 12 Hours) Vital Signs Temp Pulse Resp BP Pulse Ox 06/19/21 15:38 36.9 C 75 19 109/61 90 06/19/21 15:22 75 18 92 06/19/21 11:35 36.7 C 81 24 107/57 L 91 06/19/21 10:50 80 22 91 06/19/21 07:42 79 20 89 L 06/19/21 07:16 36.7 C 80 25 H 94/46 L 88 L
[2021-06-19] MEDS: ATORVASTATIN 20 MG TAB PO SCH (19:46)
[2021-06-19] MEDS: MELATONIN 3 MG TAB PO SCH (19:46)
[2021-06-19] MEDS: traZODone HCL 100 MG TAB PO SCH (19:46)
[2021-06-19] MEDS: HYDROCODONE/ACETAMOPHEN 5/325MG TAB PO PRN (19:46)
[2021-06-19] MEDS: DOCUSATE SODIUM 100 MG CAP PO SCH (19:47)
[2021-06-20] MEDS: ENOXAPARIN INJ 40 MG/0.4 ML SYR SQ SCH ×2 (06:47→19:39)
[2021-06-20 06:59] LABS: Creatinine Clr Calc Pharmacy 85.2 ml/min; Est GFR (African American) 105.2 ml/min; Est GFR (Non-African American) 90.8 ml/min; Potassium 3.9 mmol/L (3.5-5.1)
[2021-06-20] MEDS: PREGABALIN 50 MG CAP PO SCH ×3 (08:41→21:59)
[2021-06-20] MEDS: DOCUSATE SODIUM 100 MG CAP PO SCH ×2 (08:42→21:59)
[2021-06-20] MEDS: POLYETHYLENE (MIRALAX) 17 GM PACK PO SCH (08:42)
[2021-06-20] MEDS: FUROSEMIDE INJ 20 MG/2 ML VIAL IV SCH (08:42)
[2021-06-20] MEDS: DULoxetine HCL 60 MG CAP PO SCH (08:42)
[2021-06-20] MEDS: ONDANSETRON INJ 2 MG/ML 2 ML VIAL IV PRN (12:47)
--- NOTE | 2021-06-20 16:38 | Hospitalist Progress Note ---
Date of Service June 20, 2021 Assessment & Plan (1) Acute respiratory failure with hypoxia: (2) Pneumonia due to 2019-nCoV: Plan: (1) Acute respiratory failure with hypoxia: Currently requiring 50 L at 89%.. Cont to prone 15hr/day if possible to avoid bipap and intubation. Strict bedrest. Soft diet. Patient desaturates when in supine position at 40 L and also with movement, maintaining saturation during prone position. Johnson catheter in place due to desaturation with movement. Patient eating better lately, no bowel movement since last 7/8 days but her appetite has been very low in the past week. c/w bowel regimen and continue to monitor, no belly pain or distention, patient moving gas. Per prior hospitalist attending, she verbalized understanding about the mortality risk of her current situation and was presented with options. At this time she is ok with ventilation if needed. Family and primary nurse was updated. Upon my discussion with the patient, she was presented with facts and options for management of respiratory failure secondary to Covid going forward, patient agreeable to BiPAP/CPAP and intubation if the need arises. Patient again counseled regarding incentive spirometer and flutter valve when able. Wean down oxygen as tolerated, continue with CPAP overnight and as needed. (2) Pneumonia due to 2018-nCoV: Patient not vaccinated, has signs and symptoms since May 30. BNP on 06/13 was 1563, down trended to 432 on 06/16. s/p dexa. Was started on baricitinib per EUA criteria, however, declined to continue this after considering the risks/benefits further CTA was negative for PE on 06/12. Pro-Abilio negative. Lasix 20 mg IV daily, strict I's and O's, keep patient on drier belt conveyor side. Monitor BMP daily. (3) Diarrhea: Diarrhea secondary to norovirus (tested + 06/07/2021) and COVID-19 Diarrhea currently resolved (4) Fibromyalgia: Chronic, stable, continue duloxetine, pregabalin, hydrocodone as needed per home regimen (5) DVT prophylaxis: Lovenox Full code Dispo-cont PCU status. Borderline patient with worsened respiratory failure. Closely watch for need for intubation if she cannot maintain oxygen saturation >88% on BiPAP/CPAP should the need arise. Admission and Anticipated Discharge Date Admission Date: June 09, 2021 Subjective Patient was lying on her side in bed, on 40L high flow at 99%, NAD. Patient is eating less per RN, has not had bowel movement since few days. Patient again counseled on the importance of incentive spirometer and flutter valve, and the frequency she needs to be doing it. Patient denies feverish feeling/headache/dizziness/chest pain/palpitation/other review of symptoms. Patient performed very poorly with incentive spirometry, encouraged to continue doing it. During the afternoon, patient desatted with movement and needed to be put on BPAP. Patient was anxious and not cooperating, patient reassured and agreeable to continue with BiPAP for now. Physical Exam Physical Exam: GENERAL: Alert and oriented x3. NAD, on 50L at 89%. HEENT: No pallor, no icterus. Pupils equal, round and reactive to light. Oral mucosa moist. NECK: No JVD, no neck masses. HEART: S1 and S2 heard. Regular rate and rhythm. No murmur, no gallop. RESPIRATORY SYSTEM: Normal AP diameter. No accessory muscle use. No wheezing, no crackles. Decreased breath sounds persistent ABDOMEN: Soft, bowel sounds present, nontender, no distention. CENTRAL NERVOUS SYSTEM: No facial droop. Speech is clear. Obeys simple commands. Moves extremities. EXTREMITIES: No edema, no erythema seen. Results & Data Results & Data ([facility]) Vital Signs (Past 12 Hours) Vital Signs Temp Pulse Pulse Resp BP Pulse Ox 06/20/21 15:43 97 H 27 H 91 06/20/21 12:06 37.5 C 91 H 22 98/56 L 91 06/20/21 10:39 81 18 90 06/20/21 09:00 88 20 92 06/20/21 08:00 81 06/20/21 07:07 36.6 C 78 20 113/53 L 94
[2021-06-20] MEDS ORDERED: LORazepam 0.25 MG/0.5 ML VIAL IV STA (16:42)
--- NOTE | 2021-06-20 18:45 | Communication Note ---
Date of Service: June 20, 2021 Asked to come to bedside for evaluation of need/want of intubation by primary service. Patient is HD #11 for admission for COVID 19 pneumonia, per review of her history and physical upon admission patient's symptoms originally started on , placing her at ~day 20 of illness. Patient did not meet criteria for treatment of Remdesivir, but remains on Decadron 6mg IV daily. Pulmonary consult was performed on 06/13/21 and with a steady increase in her CRP she was initiated on Baricitinib. She remains on HFNC and CPAP alternating. Patient wa s on Baricitinib for 2 days and she requested to stop this. She does prone and side lying but now does not want to. This evening patient was on zoom call with family and reportedly got tachycardic and dyspneic following that and then was refusing to put on her CPAP or HFNC, Her RR increased leading to low volumes and hypoxia. Upon my evaluation patient was calmer and tolerating her CPAP although her PS could be decreased as she is having volumes in the 600-700 range, her RR was 25 and her SPO2 on 100% is 89-90%. Patient was able to talk with me with her mask on without desaturation. I disucssed with the patient that she was requiring allot of support and that we could continue with the CPAP and the HFNC or we could place a breathing tube in and place her on the ventilator. The patient did not want intubated unless it was the last thing to do for her to save her life. We then discussed that this may occur at any time and she stated she wanted to stay as she was and wait. We also discussed that there is a possibility that waiting may result in an emergency and/or even the patient said " I understand but want to wait as I am." Patient is with sound mind and her responses are appropriate. As placing her on a Ventilator is not without risk and possibly detrimental to her in this stage of her illness. I would recommend treating her anxiety to allow her to breathe with the CPAP more in synch and assist her in proning and side lying. Patient is having good recruiting response when she does this and has had her SPO2 up to 94% on HFNC at 80-100% FIo2. The above discussion is in line with her previous notes where she would want mechanical ventilation only if she needed it. Coding Level of Care Code Critical Care 1st 30-74 mins History Problem Focused Exam Problem Focused
[2021-06-20] MEDS: LORazepam 0.5 MG/1 ML VIAL IV PRN (19:39)
[2021-06-20] MEDS ORDERED: OLANZapine 10 MG/2.1 ML SDV IM STA (20:12)
[2021-06-20] MEDS ORDERED: XOPENEX/ATROVENT 1.25mg/0.5MG NEB COMBO NEB STA (20:13)
[2021-06-20] MEDS ORDERED: IPRATROPIUM BROMIDE NEB SOLN 0.02% 2.5 ML VIAL INH STA (20:18)
[2021-06-20] MEDS ORDERED: LEVALBUTEROL 1.25MG/0.5ML NEB INH STA (20:19)
[2021-06-20] MEDS ORDERED: methylPREDNISolone 40 MG in SYRINGE 0 ML IV ONE (20:30)
[2021-06-20] MEDS ORDERED: ALBUMIN 25% 12.5 GM/50 ML VIAL IV ONE (20:32)
[2021-06-20] MEDS ORDERED: FUROSEMIDE INJ 20 MG/2 ML VIAL IV ONE (20:32)
--- NOTE | 2021-06-20 20:37 | XRay Report ---
XR chest 1V portable CLINICAL HISTORY: low o2. Follow-up bilateral interstitial and alveolar opacities COMPARISON STUDY: 06/12/2021 TECHNIQUE: 1 prone view of the chest FINDINGS: Single frontal view of the chest demonstrates the cardiomediastinal silhouette to be within normal li mits. Compared to the previous examination, there continues to be interval worsening of bilateral int erstitial and alveolar opacities. There is no evidence for pleural effusion. There is no evidence for vascular congestion. There is no acute osseous pathology. IMPRESSION: Continued interval worsening of bilateral interstitial and alveolar opacities. ACT 112: Negative or not required by law. Electronically signed by: Mason Porras M.D. 06/20/2021 8:35 PM
[2021-06-20 21:28] LABS: HCO3 ABG 34 mmol/L (19-24); Oxygen Saturation ABG 91.1 % (90-95); PCO2 ABG 50 mmHg (35-46); PO2 ABG 61 mmHg (80-95); pH ABG 7.44 (7.35-7.45)
[2021-06-20 21:29] LABS: Allen Test Pos (Pos)
[2021-06-20 21:41] LABS: Partial Thromboplastin Ratio 1.1; Partial Thromboplastin Time 29.9 Seconds (21.0-31.0)
[2021-06-20 21:49] LABS: Magnesium 2.1 mg/dl (1.8-2.4)
[2021-06-20] MEDS: ATORVASTATIN 20 MG TAB PO SCH (21:59)
[2021-06-20] MEDS: traZODone HCL 100 MG TAB PO SCH (21:59)
[2021-06-20] MEDS: HYDROCODONE/ACETAMOPHEN 5/325MG TAB PO PRN (22:00)
[2021-06-20] MEDS: MELATONIN 3 MG TAB PO PRN (22:00)
[2021-06-21] MEDS: BENZONATATE 100 MG CAPSULE PO PRN ×2 (05:04→20:13)
[2021-06-21] MEDS: HYDROCODONE/ACETAMOPHEN 5/325MG TAB PO PRN ×2 (05:05→20:13)
[2021-06-21] MEDS: ENOXAPARIN INJ 40 MG/0.4 ML SYR SQ SCH ×2 (06:25→18:22)
[2021-06-21 07:21] LABS: Hematocrit (blood only) 37.3 % (37-47); Hemoglobin 12.3 g/dL (12.0-16.0); Mean Corpuscular Hemoglobin 30.4 pg (25-34); Mean Corpuscular Volume 92.1 fL (80-100); Mean Platelet Volume 12.4 fL (7.4-10.4); Platelet Count 192 K/uL (130-400); RDW Coefficient of Variation 11.8 % (11.5-14.5); RDW Standard Deviation 40.5 fL (36.4-46.3); Red Blood Count 4.05 M/uL (4.2-5.4); White Blood Count 26.66 K/uL (4.8-10.8)
[2021-06-21 07:57] LABS: BUN Creatinine Ratio 28.6 (10-20); Creatinine Clr Calc Pharmacy 63.2 ml/min; Est GFR (African American) 77.2 ml/min; Est GFR (Non-African American) 66.6 ml/min; Phosphorus 6.1 mg/dl (2.5-4.9); Potassium 3.9 mmol/L (3.5-5.1)
[2021-06-21] MEDS: FUROSEMIDE INJ 20 MG/2 ML VIAL IV SCH (08:56)
[2021-06-21] MEDS: POLYETHYLENE (MIRALAX) 17 GM PACK PO SCH (09:16)
[2021-06-21] MEDS: DULoxetine HCL 60 MG CAP PO SCH ×2 (09:16→12:26)
[2021-06-21] MEDS: DOCUSATE SODIUM 100 MG CAP PO SCH ×3 (09:16→20:13)
[2021-06-21] MEDS: PREGABALIN 50 MG CAP PO SCH ×3 (09:17→20:13)
[2021-06-21] MEDS: ATORVASTATIN 20 MG TAB PO SCH (20:13)
[2021-06-21] MEDS: traZODone HCL 100 MG TAB PO SCH (20:13)
[2021-06-21] MEDS: MELATONIN 3 MG TAB PO PRN (20:13)
--- NOTE | 2021-06-21 20:20 | Hospitalist Progress Note ---
Date of Service June 21, 2021 Assessment & Plan (1) Acute respiratory failure with hypoxia: (2) Pneumonia due to 2019-nCoV: Plan: (1) Acute respiratory failure with hypoxia: Currently requiring 50 L at 89%.. Cont to prone 15hr/day if possible to avoid bipap and intubation. Strict bedrest. Soft diet. Patient desaturates when in supine position at 40 L and also with movement, maintaining saturation during prone position. Johnson catheter in place due to desaturation with movement. Patient eating better lately, no bowel movement since last 7/8 days but her appetite has been very low in the past week. c/w bowel regimen and continue to monitor, no belly pain or distention, patient moving gas. Per prior hospitalist attending, she verbalized understanding about the mortality risk of her current situation and was presented with options. At this time she is ok with ventilation if needed. Family and primary nurse was updated. Upon my discussion with the patient, she was presented with facts and options for management of respiratory failure secondary to Covid going forward, patient agreeable to BiPAP/CPAP and intubation if the need arises. Patient again counseled regarding incentive spirometer and flutter valve when able. Wean down oxygen as tolerated, continue with CPAP overnight and as needed. (2) Pneumonia due to nCoV: Patient not vaccinated, has signs and symptoms since May 30. BNP on 06/13 was 1563, down trended to 432 on 06/16. s/p dexa. Was started on baricitinib per EUA criteria, however, declined to continue this after considering the risks/benefits further CTA was negative for PE on 06/12. Pro-Abilio negative. Lasix 20 mg IV daily, strict I's and O's, keep patient on input output clerk side. Monitor BMP daily. (3) Diarrhea: Diarrhea secondary to norovirus (tested + 06/07/2021) and COVID-19 Diarrhea currently resolved (4) Fibromyalgia: Chronic, stable, continue duloxetine, pregabalin, hydrocodone as needed per home regimen (5) DVT prophylaxis: Lovenox Full code Dispo-cont PCU status. Borderline patient with worsened respiratory failure. Closely watch for need for intubation if she cannot maintain oxygen saturation >88% on BiPAP/CPAP should the need arise. Admission and Anticipated Discharge Date Admission Date: June 09, 2021 Subjective Patient was lying in bed, on BiPAP, no new acute events overnight. Per RN, she is doing okay on BiPAP maintaining saturation mostly at 88%. She cannot be taken off of BPAP for oral medication administration or food. Patient denies fever/cough/chest pain/palpitation/other review of symptoms. Patient does get anxious with the BiPAP and has been getting Ativan, which has been helping her per patient. Physical Exam Physical Exam: GENERAL: Alert and oriented x3. NAD, on BPAP HEENT: No pallor, no icterus. Pupils equal, round and reactive to light. Oral mucosa moist. NECK: No JVD, no neck masses. HEART: S1 and S2 heard. Regular rate and rhythm. No murmur, no gallop. RESPIRATORY SYSTEM: Normal AP diameter. No accessory muscle use. No wheezing, no crackles. Decreased breath sounds persistent ABDOMEN: Soft, bowel sounds present, nontender, no distention. CENTRAL NERVOUS SYSTEM: No facial droop. Speech is clear. Obeys simple commands. Moves extremities. EXTREMITIES: No edema, no erythema seen. Results & Data Results & Data ([facility]) Vital Signs (Past 12 Hours) Vital Signs Temp Pulse Pulse Resp BP BP Pulse Ox 06/21/21 19:19 36.6 C 102 H 22 120/71 93 06/21/21 18:32 104 H 24 93 06/21/21 16:27 87 24 93 06/21/21 15:42 36.6 C 104 H 19 104/75 92 06/21/21 12:04 97 H 26 H 89 L 06/21/21 11:54 36.9 C 103 H 22 110/75 90
[2021-06-22 06:29] LABS: Hematocrit (blood only) 35.9 % (37-47); Mean Corpuscular Hemoglobin 30.8 pg (25-34); Mean Corpuscular Hgb Conc 33.4 g/dL (32-36); Mean Corpuscular Volume 92.1 fL (80-100); Mean Platelet Volume 12.5 fL (7.4-10.4); Platelet Count 199 K/uL (130-400); RDW Standard Deviation 40.4 fL (36.4-46.3); White Blood Count 29.36 K/uL (4.8-10.8)
[2021-06-22] MEDS: ENOXAPARIN INJ 40 MG/0.4 ML SYR SQ SCH ×2 (06:42→18:01)
[2021-06-22 07:01] LABS: BUN Creatinine Ratio 46.2 (10-20); Calcium 9.5 mg/dl (8.5-10.1); Creatinine Clr Calc Pharmacy 83.9 ml/min; Est GFR (African American) 104.7 ml/min; Est GFR (Non-African American) 90.3 ml/min
[2021-06-22 07:39] LABS: Estimated Average Glucose 131 mg/dl; Hemoglobin A1C 6.2 % (4.5-5.6)
[2021-06-22] MEDS: DULoxetine HCL 60 MG CAP PO SCH (08:25)
[2021-06-22] MEDS: POLYETHYLENE (MIRALAX) 17 GM PACK PO SCH (08:25)
[2021-06-22] MEDS: DOCUSATE SODIUM 100 MG CAP PO SCH (08:25)
[2021-06-22] MEDS: FUROSEMIDE INJ 20 MG/2 ML VIAL IV SCH (08:32)
[2021-06-22] MEDS: PREGABALIN 50 MG CAP PO SCH ×3 (08:32→19:56)
[2021-06-22] MEDS: HYDROCODONE/ACETAMOPHEN 5/325MG TAB PO PRN ×2 (12:49→19:57)
--- NOTE | 2021-06-22 13:57 | Hospitalist Progress Note ---
Date of Service June 22, 2021 Assessment & Plan (1) Acute respiratory failure with hypoxia: (2) Pneumonia due to 2019-nCoV: Plan: (1) Acute respiratory failure with hypoxia: Currently requiring CPAP.. Cont to prone . Strict bedrest. Soft diet when able. Patient desaturates when in HFNC and also with movement, maintaining saturation during prone position. Johnson catheter in place due to desaturation with movement. Patient cannot be off of CPAP for p.o. intake, will put her on gentle hydration with D5 for energy requirement, c/w bowel regimen and continue to monitor, no belly pain or distention, patient moving gas. Per prior hospitalist attending, she verbalized understanding about the mortality risk of her current situation and was presented with options. At this time she is ok with ventilation if needed. Family and primary nurse was updated. Upon my discussion with the patient, she was presented with facts and options for management of respiratory failure secondary to Covid going forward, patient agreeable to BiPAP/CPAP and intubation if the need arises. IS/flutter valve when able. Wean down oxygen as tolerated, continue with CPAP overnight and as needed. (2) Pneumonia due to nCoV: Patient not vaccinated, has signs and symptoms since May 30. BNP on 06/13 was 1563, down trended to 432 on 06/16. s/p dexa. Was started on baricitinib per EUA criteria, however, declined to continue this after considering the risks/benefits further CTA was negative for PE on 06/12. Pro-Abilio negative but uptrending Lasix 20 mg IV daily, strict I's and O's, keep patient on commercial collector side. Monitor BMP daily. #. Likely bacterial pneumonia: Patient has been afebrile though her WBC count has started increasing caterina mendously from 06/21 and patient started to need CPAP continuously from 06/21 Positive crackles on auscultation. Decreased breath sounds. WBC elevation stays, procalcitonin though negative is uptrending We will cover her with Rocephin for likely superimposed bacterial infection on top of viral pneumonia Get blood culture, and sputum culture if able. (3) Diarrhea: Diarrhea secondary to norovirus (tested + 06/07/2021) and COVID-19 Diarrhea currently resolved (4) Fibromyalgia: Chronic, stable, continue duloxetine, pregabalin, hydrocodone as needed per home regimen (5) DVT prophylaxis: Lovenox Full code Dispo-cont PCU status. Borderline patient with worsened respiratory failure. Closely watch for need for intubation if she cannot maintain oxygen saturation >88% on BiPAP/CPAP should the need arise. 06/22: Updated patient's Mr. Menard and patient's [id number] Liz regarding her current status and possible intubation requirement in coming days, answered all their questions, they voiced understanding and agreeable to the plan of care. Admission and Anticipated Discharge Date Admission Date: June 09, 2021 Subjective Patient was lying in bed, proning on CPAP, no new acute events overnight. Per RN, she is doing okay on BiPAP maintaining saturation mostly at above 90s. She cannot be taken off of BPAP for oral medication administration or food. She drops down to 70s per RN. Patient denies fever/cough/chest pain/palpitation/other review of symptoms. Patient does get anxious with CPAP, but lately tolerating CPAP well, has not used Ativan since last 2 days. Physical Exam Physical Exam: GENERAL: Alert and oriented x3. NAD, on CPAP with SaO2 96% HEENT: No pallor, no icterus. Pupils equal, round and reactive to light. Oral mucosa moist. NECK: No JVD, no neck masses. HEART: S1 and S2 heard. Regular rate and rhythm. No murmur, no gallop. RESPIRATORY SYSTEM: Normal AP diameter. No accessory muscle use. No wheezing, + crackles. Decreased breath sounds persistent ABDOMEN: Soft, bowel sounds present, nontender, no distention. CENTRAL NERVOUS SYSTEM: No facial droop. Speech is clear. Obeys simple commands. Moves extremities. EXTREMITIES: No edema, no erythema seen. Results & Data Results & Data ([facility]) Vital Signs (Past 12 Hours) Vital Signs Temp Pulse Pulse Resp BP BP Pulse Ox 06/22/21 11:44 111 H 22 94 06/22/21 11:42 36.8 C 108 H 24 117/77 91 06/22/21 08:00 99 H 06/22/21 07:52 96 H 25 H 90 06/22/21 07:39 36.7 C 99 H 20 143/80 H 94 06/22/21 03:41 97 H 21 90 06/22/21 03:19 36.4 C L 102 H 24 118/82 90
[2021-06-22] MEDS ORDERED: D5W AND NSS 1,000 ML IV SCH (14:00)
[2021-06-22] MEDS: cefTRIAXone SODIUM 2,000 MG in DEXTROSE 5% 50 ML IV SCH (15:28)
[2021-06-22] MEDS: BENZONATATE 100 MG CAPSULE PO PRN (19:56)
[2021-06-22] MEDS: traZODone HCL 100 MG TAB PO SCH (19:56)
[2021-06-22] MEDS: MELATONIN 3 MG TAB PO PRN (19:56)
[2021-06-22] MEDS: ATORVASTATIN 20 MG TAB PO SCH (19:56)
[2021-06-23] MEDS ORDERED: METOPROLOL TARTRATE 1 MG/ML VIAL IV ONE (00:43)
[2021-06-23] MEDS ORDERED: ALBUMIN HUMAN 25% 12.5 GM/50 ML VIAL IV ONE (00:51)
[2021-06-23] MEDS ORDERED: AMIODARONE 150MG / 100ML D5W IV ONE (00:51)
[2021-06-23] MEDS ORDERED: AMIODARONE 360MG / 200ML D5W IV ONE (01:06)
[2021-06-23] MEDS ORDERED: AMIODARONE IV BOLUS & DRIP IV STA (01:07)
[2021-06-23] MEDS ORDERED: AMIODARONE / D5W 150 MG/100 ML BAG IV STA (01:07)
[2021-06-23] MEDS ORDERED: 0.2 MICRON FILTER SET 1 EA IV ONE (01:07)
[2021-06-23] MEDS ORDERED: STAT IV Infusion **Titration per Protocol STA (01:07)
--- NOTE | 2021-06-23 01:09 | Communication Note ---
Date of Service: June 23, 2021 12:40 AM Patient noted to be in atrial flutter on EKG as per RN. Cardiac rate 160s as per RN. SBP initially 140s later 83/66. AP Hypotension secondary to new onset atrial flutter IV amiodarone IVF TTE, Cardiology consult Re: New onset atrial flutter Will relay to AM provider.
[2021-06-23] MEDS ORDERED: ALBUMIN 25% 100 mL 25 GM/100 ML VIAL IV ONE (01:15)
[2021-06-23] MEDS ORDERED: AMIODARONE / D5W 360 MG/200 ML BAG IV ONE (01:17)
[2021-06-23 01:41] LABS: Hematocrit (blood only) 36.8 % (37-47); Mean Corpuscular Hemoglobin 30.7 pg (25-34); Mean Corpuscular Hgb Conc 32.6 g/dL (32-36); Mean Corpuscular Volume 94.1 fL (80-100); Mean Platelet Volume 12.4 fL (7.4-10.4); Platelet Count 218 K/uL (130-400); RDW Coefficient of Variation 12.1 % (11.5-14.5); RDW Standard Deviation 40.9 fL (36.4-46.3); Red Blood Count 3.91 M/uL (4.2-5.4)
[2021-06-23 01:51] LABS: Partial Thromboplastin Ratio 1.1; Partial Thromboplastin Time 30.2 Seconds (21.0-31.0)
[2021-06-23 01:57] LABS: BUN Creatinine Ratio 41.6 (10-20); Calcium 9.6 mg/dl (8.5-10.1); Est GFR (African American) 98.1 ml/min; Est GFR (Non-African American) 84.6 ml/min; Magnesium 2.7 mg/dl (1.8-2.4); Potassium 3.8 mmol/L (3.5-5.1)
[2021-06-23 02:08] LABS: Thyroid Stimulating Hormone 1.15 uIu/ml (0.300-4.500)
[2021-06-23] MEDS ORDERED: POTASSIUM CHLORIDE PWD 20 MEQ PACK PO STA (02:10)
[2021-06-23 02:11] LABS: Basophils # (auto) 0.01 K/uL (0-0.2); Eosinophils # (auto) 0.01 K/uL (0-0.5); Immature Granulocytes # (auto) 0.11 K/uL (0.00-0.02); Immature Granulocytes % (auto) 0.4 %; Lymphocytes # (auto) 0.75 K/uL (1.2-3.4); Monocytes % (auto) 1.2 %; Neutrophils # (auto) 24.02 K/uL (1.4-6.5); Neutrophils % (auto) 95.4 %
[2021-06-23] MEDS ORDERED: DIGOXIN 250 MCG in SYRINGE 9 ML IV STA (02:28)
[2021-06-23] MEDS: POTASSIUM CHLORIDE / WTR 10 MEQ/100 ML PLCT IV SCH ×2 (02:34→03:21)
[2021-06-23] MEDS ORDERED: SODIUM CHLORIDE 0.9% 500 ML IV ONE (03:00)
[2021-06-23] MEDS ORDERED: METOPROLOL TARTRATE 1 MG/ML VIAL IV STA (03:14)
[2021-06-23] MEDS: ENOXAPARIN INJ 40 MG/0.4 ML SYR SQ SCH (06:31)
[2021-06-23] MEDS ORDERED: LACTATED RINGER'S 1,000 ML IV ONE (06:40)
[2021-06-23] MEDS: AMIODARONE / D5W 360 MG/200 ML BAG IV SCH ×2 (06:48→18:10)
[2021-06-23] MEDS: POLYETHYLENE (MIRALAX) 17 GM PACK PO SCH (08:38)
[2021-06-23] MEDS: DULoxetine HCL 60 MG CAP PO SCH (08:38)
[2021-06-23] MEDS: PREGABALIN 50 MG CAP PO SCH ×3 (08:44→23:41)
[2021-06-23] MEDS: FUROSEMIDE INJ 20 MG/2 ML VIAL IV SCH (08:44)
--- NOTE | 2021-06-23 10:34 | Cardiology Consultation ---
Date of Consultation June 23, 2021 Assessment & Plan (1) SVT (supraventricular tachycardia): (2) ARDS (adult respiratory distress syndrome): (3) Acute respiratory failure with hypoxia: (4) Pneumonia due to 2019-nCoV: (5) COVID-19: (6) Hypoxia: (7) Fibromyalgia: Severely ill 70-year-old unvaccinated woman admitted to [facility] Severely ill 62-year-old on vaccinated woman admitted to [facility] with ARDS secondary to COVID-19 [facility] with ARDS secondary to COVID 19 pneumonia Given her current pulmonary status status I am actually surprised she has supraventricular ectopy to this point not had any Supraventricular ectopy to this given point. She was successfully converted to normal sinus rhythm with amiodarone she was successfully converted to normal sinus rhythm, however, given her tenuous pulmonary status I do not believe this is a problem medication for her with IV amiodarone, however, given her tenuous pulmonary status I do not believe this is the proper medication for her for extended use. Complete 24-hour amiodarone complete bolus 24 hour amiodarone bolus and load and then discontinue she is unable to take oral medication so we will instead start metoprolol 2.5 mg IV every 6 hours no cardiac indication for anticoagulation at this time echocardiogram would not change treatment course and will be canceled to reduce staff exposure History of Present Illness Requesting Physician: Dr. Lyon Attending Physician: Nathanael Pickens MD History of Present Illness The patient is a very limited illness 70-year-old unvaccinated patient is a very i 1 70-year-old on vaccinated who presented to [facility] with woman who pres COVID-19 to [facility] pneumonia. with COVID-19 pneumonia. She has been started on appropriate treatment. She has been started on appropriate treatment secondary to maintain oxygen saturations. but still very difficult to maintain oxygen saturations. Earlier on 06/23/2020 Early in the a.m. of [facility] episode of SVT was found and treated 2020 at a episode of SVT was found on tel for which she received monitoring for which she received IV amiodarone with successful conversion to normal sinus IV amiodarone w. successful conversion to normal sinus rhythm. Patient is currently not able to take oral meds due to desaturation The patient is currently not able to take taken off CPAP unit for the moment oral meds due. to desaturations from taking off CPAP he is unable to speak to the patient because of this as well. even for a moment. History obtained through review of medical records. Was unable to speak to the patient because of this as well. History obtained through review of medical records. Allergies Allergy/AdvReac Type Severity Reaction Status Date / Time amoxicillin [From Augmentin] Allergy Intermediate diarrhea Verified 06/07/21 19:13 celecoxib [From Celebrex] Allergy Intermediate Diarrhea Verified 06/07/21 19:13 clavulanic acid Allergy Intermediate diarrhea Verified 06/07/21 19:13 [From Augmentin] Home Medications Medication Instructions Recorded Confirmed Type acetaminophen 500 mg tablet 1,000 mg PO DIRECTED PRN 06/07/21 06/09/21 History (Tylenol Extra Strength) atorvastatin 20 mg tablet 20 mg PO HS 06/07/21 06/09/21 History duloxetine 60 mg capsule,delayed 60 mg PO DAILY 06/07/21 06/09/21 History release hydrocodone 5 mg-acetaminophen 325 1 tab PO DIRECTED PRN 06/07/21 06/09/21 History mg tablet melatonin 5 mg tablet 5 mg PO HS 06/07/21 06/09/21 History pregabalin 50 mg capsule 50 mg PO TID 06/07/21 06/09/21 History trazodone 100 mg tablet 100 mg PO HS 06/07/21 06/09/21 History ondansetron 4 mg disintegrating 4 mg PO Q8H PRN #10 tab 06/08/21 06/09/21 Rx tablet Patient History Medical History Fibromyalgia GERD (gastroesophageal reflux disease) Hypercholesterolemia Lumbar radiculopathy Surgical History History of D&C Family History Other Diabetes Social History Smoking Status: Never smoker Hx Alcohol Use: No Hx Substance Use: No Preferred Language: Frisian Communication Ability: Effective Scientific Affairs Manager Required: No Beliefs That Will Affect Care: None marital status: Current Living Situation: Spouse Feels Safe at Home: Yes Safety Concerns: Feels Safe At This Time Assistive Devices: CPAP and Oxygen - Continuous Review of Systems Review of Systems: Other Results & Data ([facility]) Vital Signs (Past 12 Hours) Vital Signs Temp Pulse Pulse Resp BP BP BP 06/23/21 10:15 101 H 24 06/23/21 08:24 99 H 24 06/23/21 07:49 37.4 C 96 H 20 165/78 H 06/23/21 06:30 86 06/23/21 06:28 06/23/21 06:15 92 H 140/90 06/23/21 05:30 90 117/74 06/23/21 04:30 96 H 119/90 06/23/21 04:00 92 H 128/78 06/23/21 03:35 90 24 06/23/21 03:28 90 139/64 06/23/21 03:25 97 H 06/23/21 03:21 145 H 139/90 06/23/21 03:20 147 H 139/90 06/23/21 03:14 150 H 145/93 H 06/23/21 03:01 37.0 C 128 H 24 134/80 06/23/21 02:50 108 H 06/23/21 02:46 160 H 149 H 145/92 H 06/23/21 02:35 136 H 125/86 06/23/21 02:27 126 H 24 103/65 06/23/21 02:16 166 H 109/65 06/23/21 02:01 116 H 103/85 06/23/21 01:47 114 H 86/67 L 06/23/21 01:37 126 H 87/67 L 06/23/21 01:30 112 H 23 108/57 L 06/23/21 01:28 24 06/23/21 01:27 163 H 92/64 L 06/23/21 01:16 155 H 97/60 L 06/23/21 01:05 162 H 104/63 06/23/21 00:50 123 H 80/43 L 06/23/21 00:47 142 H 83/66 L 06/23/21 00:45 122 H 91/57 L 06/23/21 00:35 160 H 06/23/21 00:32 152 H 143/79 H 06/22/21 23:46 36.8 C 111 H 20 134/73 06/22/21 23:28 106 H 23 Pulse Ox 06/23/21 10:15 92 06/23/21 08:24 92 06/23/21 07:49 93 06/23/21 06:30 06/23/21 06:28 91 06/23/21 06:15 89 L 06/23/21 05:30 88 L 06/23/21 04:30 86 L 06/23/21 04:00 91 06/23/21 03:35 90 06/23/21 03:28 06/23/21 03:25 06/23/21 03:21 06/23/21 03:20 06/23/21 03:14 06/23/21 03:01 90 06/23/21 02:50 06/23/21 02:46 06/23/21 02:35 06/23/21 02:27 91 06/23/21 02:16 90 06/23/21 02:01 91 06/23/21 01:47 90 06/23/21 01:37 88 L 06/23/21 01:30 89 L 06/23/21 01:28 88 L 06/23/21 01:27 06/23/21 01:16 06/23/21 01:05 06/23/21 00:50 06/23/21 00:47 06/23/21 00:45 88 L 06/23/21 00:35 06/23/21 00:32 06/22/21 23:46 95 06/22/21 23:28 91
[2021-06-23] MEDS: cefTRIAXone SODIUM 2,000 MG in DEXTROSE 5% 50 ML IV SCH (13:56)
[2021-06-23] MEDS ORDERED: FUROSEMIDE INJ 20 MG/2 ML VIAL IV ONE (18:23)
[2021-06-23] MEDS: DOXYCYCLINE HYCLATE 100 MG in DEXTROSE 5% 100 ML IV SCH (18:43)
[2021-06-23 19:05] LABS: Hematocrit (blood only) 35.2 % (37-47); Hemoglobin 11.6 g/dL (12.0-16.0); Mean Corpuscular Hemoglobin 30.8 pg (25-34); Mean Corpuscular Volume 93.4 fL (80-100); Mean Platelet Volume 12.6 fL (7.4-10.4); Platelet Count 200 K/uL (130-400); RDW Coefficient of Variation 12.1 % (11.5-14.5); RDW Standard Deviation 41.1 fL (36.4-46.3); Red Blood Count 3.77 M/uL (4.2-5.4); White Blood Count 25.63 K/uL (4.8-10.8)
--- NOTE | 2021-06-23 19:26 | Hospitalist Progress Note ---
Date of Service June 23, 2021 Assessment & Plan (1) Acute respiratory failure with hypoxia: (2) Pneumonia due to nCoV: Plan: per Dr. Klein's notes with addendum: (1) Acute respiratory failure with hypoxia: Currently requiring CPAP.. Cont to prone . Strict bedrest. Soft diet when able. Patient desaturates when in HFNC and also with movement, maintaining saturation during prone position. Minor catheter in place due to desaturation with movement. Patient cannot be off of CPAP for p.o. intake, will put her on gentle hydration with D5 for energy requirement, c/w bowel regimen and continue to monitor, no b mary pain or distention, patient moving gas. Per prior hospitalist attending, she verbalized understanding about the mortality risk of her current situation and was presented with options. At this time she is ok with ventilation if needed. Family and primary nurse was updated. Upon my discussion with the patient, she was presented with facts and options for management of respiratory failure secondary to Covid going forward, patient agreeable to BiPAP/CPAP and intubation if the need arises. IS/flutter valve when able. Wean down oxygen as tolerated, continue with CPAP overnight and as needed. 06/23 desaturating today on CPAP patient declines intubation, prefers to transition to DNR discussed with Dr. Castro, maintain CPAP setting 16 and 100% fio2, additional Lasix 20mg IV, Azithromycin IV (2) Pneumonia due to V: Patient not vaccinated, has signs and symptoms since May 30. BNP on 06/13 was 1563, down trended to 432 on 06/16. s/p dexa. Was started on baricitinib per EUA criteria, however, declined to continue this after considering the risks/benefits further CTA was negative for PE on 06/12. Pro-Abilio negative but uptrending Lasix 20 mg IV daily, strict I's and O's, keep patient on stock drier tender side. Monitor BMP daily. 06/23 management per above #. Likely bacterial pneumonia: Patient has been afebrile though her WBC count has started increasing tremendously from 06/21 and patient started to need CPAP continuously from 06/21 Positive crackles on auscultation. Decreased breath sounds. WBC elevation stays, procalcitonin though negative is uptrending We will cover her with Rocephin for likely superimposed bacterial infection on top of viral pneumonia Get blood culture, and sputum culture if able. 06/23 added Azithromycin (3) Diarrhea: Diarrhea secondary to norovirus (tested + 06/07/2021) and COVID-19 Diarrhea currently resolved (4) Fibromyalgia: Chronic, stable, continue duloxetine, pregabalin, hydrocodone as needed per home regimen (5) DVT prophylaxis: Lovenox Full code Dispo-cont PCU status. Borderline patient with worsened respiratory failure. Closely watch for need for intubation if she cannot maintain oxygen saturation >88% on BiPAP/CPAP should the need arise. 06/22: Updated patient's Mr. Menard and patient's [id number] Liz regarding her current status and possible intubation requirement in coming days, answered all their questions, they voiced understanding and agreeable to the plan of care. 06/23: discussed with patient's Derian in detail, he would like to confirm DNR status with his over the phone, per RN, patient confirmed DNR status with over the phone attempted to call patient's daughter in law but no answer Admission and Anticipated Discharge Date Admission Date: June 09, 2021 Subjective 06/23/21 ff up for COVID 19 pneumonia, hypoxic respiratory failure notified by RN as patient was desaturating to 70% patient declining intubation respiratory therapist evaluated patient, discussed with Dr. Castro- CPAP 16, 100%, patient proned on exam, patient satting 86% alert, oriented, answering questions appropriately states she does not want to be intubated, also does not want chest compression, defibrillation if she goes into cardiorespiratory arrest explained this may lead to her passing, and she maintains she would like to be DNR states breathing is somewhat better since proning, changes in CPAP no other symptoms noted to have hematuria on minor cath Review of Systems Review of Systems: all noted and negative except for above Physical Exam Physical Exam: General- oriented x 2, somewhat tachypneic with accessory muscle use Eyes- anicteric Neck- no JVD Lungs- (+) rhonchi bilaterally Heart- normal rate, regular rhythm; no murmurs Abdomen- normal bowel sounds, nondistended, soft, nontender Extremities- no pretibial edema, no calf tenderness Neuro- alert, oriented; no gross focal neurologic deficits Skin- warm & dry Results & Data Results & Data ([place]) Vital Signs (Past 12 Hours) Vital Signs Temp Pulse Pulse Resp BP Pulse Ox 06/23/21 17:11 36.6 C 94 H 24 161/86 H 93 06/23/21 15:55 91 H 06/23/21 14:26 92 H 24 92 06/23/21 12:17 36.9 C 94 H 26 H 154/75 H 94 06/23/21 10:15 101 H 24 92 06/23/21 08:24 99 H 24 92 06/23/21 07:49 37.4 C 96 H 20 165/78 H 93 all noted and reviewed including below
[2021-06-23 19:28] LABS: Basophils # (auto) 0.02 K/uL (0-0.2); Basophils % (auto) 0.1 %; Immature Granulocytes % (auto) 0.8 %; Lymphocytes # (auto) 0.33 K/uL (1.2-3.4); Lymphocytes % (auto) 1.3 %; Monocytes # (auto) 0.76 K/uL (0.11-0.59); Neutrophils # (auto) 24.32 K/uL (1.4-6.5); Neutrophils % (auto) 94.8 %; RBC Morphology Unremarkable
[2021-06-23] MEDS: ONDANSETRON INJ 2 MG/ML 2 ML VIAL IV PRN (20:09)
[2021-06-23] MEDS: LORazepam 0.5 MG/1 ML VIAL IV PRN (20:09)
[2021-06-23] MEDS ORDERED: MoRPHine SULFATE 2 MG/ML CARP IV STA (23:01)
[2021-06-23] MEDS: traZODone HCL 100 MG TAB PO SCH (23:41)
[2021-06-23] MEDS: ATORVASTATIN 20 MG TAB PO SCH (23:41)
[2021-06-24 00:06] LABS: Hematocrit (blood only) 35.6 % (37-47); Hemoglobin 11.6 g/dL (12.0-16.0); Mean Corpuscular Hemoglobin 30.5 pg (25-34); Mean Corpuscular Hgb Conc 32.6 g/dL (32-36); Mean Corpuscular Volume 93.7 fL (80-100); Mean Platelet Volume 12.3 fL (7.4-10.4); Platelet Count 287 K/uL (130-400); RDW Coefficient of Variation 12.2 % (11.5-14.5); RDW Standard Deviation 41.2 fL (36.4-46.3); White Blood Count 32.04 K/uL (4.8-10.8)
[2021-06-24 00:08] LABS: Basophils # (auto) 0.03 K/uL (0-0.2); Basophils % (auto) 0.1 %; Eosinophils # (auto) 0.01 K/uL (0-0.5); Immature Granulocytes # (auto) 0.39 K/uL (0.00-0.02); Immature Granulocytes % (auto) 1.2 %; Lymphocytes # (auto) 1.47 K/uL (1.2-3.4); Lymphocytes % (auto) 4.6 %; Monocytes # (auto) 0.53 K/uL (0.11-0.59); Monocytes % (auto) 1.7 %; Neutrophils # (auto) 29.61 K/uL (1.4-6.5); Neutrophils % (auto) 92.4 %
[2021-06-24] MEDS: AMIODARONE / D5W 360 MG/200 ML BAG IV SCH (05:51)
[2021-06-24] MEDS: DOXYCYCLINE HYCLATE 100 MG in DEXTROSE 5% 100 ML IV SCH (06:48)
[2021-06-24 07:22] LABS: Hematocrit (blood only) 36.2 % (37-47); Hemoglobin 11.7 g/dL (12.0-16.0); Mean Corpuscular Hemoglobin 30.3 pg (25-34); Mean Corpuscular Hgb Conc 32.3 g/dL (32-36); Mean Corpuscular Volume 93.8 fL (80-100); Mean Platelet Volume 13.3 fL (7.4-10.4); Platelet Count 199 K/uL (130-400); RDW Coefficient of Variation 12.3 % (11.5-14.5); RDW Standard Deviation 41.9 fL (36.4-46.3); Red Blood Count 3.86 M/uL (4.2-5.4); White Blood Count 27.47 K/uL (4.8-10.8)
[2021-06-24] MEDS ORDERED: MoRPHine SULFATE 4 MG/ML 1 ML CARP\\VIAL IV PRN (08:03)
[2021-06-24] MEDS: DULoxetine HCL 60 MG CAP PO SCH (08:06)
[2021-06-24 08:07] LABS: Basophils # (auto) 0.02 K/uL (0-0.2); Basophils % (auto) 0.1 %; Eosinophils # (auto) 0.01 K/uL (0-0.5); Immature Granulocytes # (auto) 0.31 K/uL (0.00-0.02); Immature Granulocytes % (auto) 1.1 %; Lymphocytes % (auto) 3.3 %; Monocytes # (auto) 0.64 K/uL (0.11-0.59); Monocytes % (auto) 2.3 %; Neutrophils # (auto) 25.59 K/uL (1.4-6.5); Neutrophils % (auto) 93.2 %
[2021-06-24] MEDS: PREGABALIN 50 MG CAP PO SCH (08:07)
[2021-06-24] MEDS: POLYETHYLENE (MIRALAX) 17 GM PACK PO SCH (08:07)
[2021-06-24] MEDS: FUROSEMIDE INJ 20 MG/2 ML VIAL IV SCH (08:26)
--- NOTE | 2021-06-24 10:05 | Cardiology Progress Note ---
Date of Service June 24, 2021 Assessment & Plan (1) SVT (supraventricular tachycardia): (2) ARDS (adult respiratory distress syndrome): (3) Acute respiratory failure with hypoxia: (4) Pneumonia due to 2019-nCoV: (5) COVID-19: (6) Hypoxia: (7) Fibromyalgia: Plan: Severely ill 70-year-old unvaccinated woman admitted to [facility] Severely ill 62-year-old on vaccinated woman admitted to [facility] with ARDS secondary to COVID-19 [facility] with ARDS secondary to COVID 19 pneumonia Given her current pulmonary status status I am actually surprised she has supraventricular ectopy to this point not had any Supraventricular ectopy to this given point. She was successfully converted to normal sinus rhythm with amiodarone she was successfully converted to normal sinus rhythm, however, given her tenuous pulmonary status I do not believe this is a problem medication for her with IV amiodarone, however, given her tenuous pulmonary status I do not believe this is the proper medication for her for extended use. Complete 24-hour amiodarone complete bolus 24 hour amiodarone bolus and load and then discontinue she is unable to take oral medication so we will instead start metoprolol 2.5 mg IV every 6 hours no cardiac indication for anticoagulation at this time echocardiogram would not change treatment course and will be canceled to reduce staff exposure Admission and Anticipated Discharge Date Admission Date: June 09, 2021 Subjective Pt continues to decline despite ongoing treatment. Has maintained sinus rhythm but now tachy jayesh with rates varying from 40's to 130's. Pt is DNR. Results & Data ([facility]) Vital Signs (Past 12 Hours) Vital Signs Temp Pulse Pulse Resp BP BP Pulse Ox 06/24/21 07:36 122 H 38 H 78 L 06/24/21 07:32 36.4 C L 123 H 30 H 101/63 79 L 06/24/21 02:05 134 H 32 H 81 L 06/23/21 22:47 36.6 C 122 H 32 H 159/100 H 81 L
--- NOTE | 2021-06-24 10:16 | Electrocardiogram Report ---
Test Reason : Blood Pressure : / mmHG Vent. Rate : 167 BPM Atrial Rate : 315 BPM P-R Int : 000 ms QRS Dur : 080 ms QT Int : 260 ms P-R-T Axes : 000 076 260 degrees QTc Int : 433 ms Atrial fibrillation with rapid ventricular response Abnormal ECG When compared with ECG of 09-JUN-2021 13:47, Atrial fibrillation has replaced Sinus rhythm Vent. rate has increased BY 86 BPM T wave inversion now evident in Inferior leads Confirmed by Kale Wright ([id number]) on 06/24/2021 10:15:37 AM Referred By: REFERRED SELF Confirmed By:Kale Wright
--- NOTE | 2021-06-24 10:18 | Electrocardiogram Report ---
Test Reason : Blood Pressure : / mmHG Vent. Rate : 116 BPM Atrial Rate : 116 BPM P-R Int : 170 ms QRS Dur : 080 ms QT Int : 300 ms P-R-T Axes : 058 070 -61 degrees QTc Int : 417 ms Sinus tachycardia Biatrial enlargement T wave abnormality, consider inferior ischemia Abnormal ECG When compared with ECG of 23-JUN-2021 00:37, Sinus rhythm has replaced Atrial fibrillation Confirmed by Kale Wright ([id number]) on 06/24/2021 10:18:00 AM Referred By: REFERRED SELF Confirmed By:Kale Wright
--- NOTE | 2021-06-24 10:38 | Discharge Summary ---
Date of Service June 24, 2021 Admission HPI Per Admitting Provider Patient is 70-year-old female with PMH GERD, dyslipidemia, fibromyalgia presented to ER with complaint of nonproductive cough and nausea and diarrhea. Patient reports 05/30/2021 started with chills. 06/02/2021 started with cough, nausea, diarrhea. Patient reports loss of taste, nasal congestion, CA, myalgias, fever, was 100.6F this morning. She had positive COVID-19 test on 06/04/2021 outpatient. States yesterday vomited once. No vomiting today. Reports 2 episodes of diarrhea today. is also ill. Patient is not vaccinated for COVID-19. Was seen in ER 06/07/2021 and did not have hypoxia and was discharged home. She did have positive norovirus stool culture. Today in ER noted 89% on room air with ambulation, other vitals stable Chest x-ray consistent with Covid pneumonia. Denies hematemesis, hematochezia, melena, dizziness, syncope, vision changes, neck pain, CP, palpitations, sore throat, choking, otalgia, abdominal pain, paresthesias, extremity weakness, extremity edema, rashes, urinary symptoms. Admission Exam (Per Admitting) Constitutional General: no acute distress, WDWN Head: normocephalic, atraumatic Eyes: conjunctiva non-injected, anicteric ENT: normal inspection external ears, nose, mucous membranes dry Neck: supple, trachea midline Lungs: 93% on room air at rest, diminished breath sounds, crackles CV: RRR, no pretibial edema Abd: normal BS, soft, non-tender Ext: no cyanosis, no calf tenderness Neuro: A&O x 3, no focal deficits noted, normal affect Skin: warm, dry Discharge Data Consultations 06/09/21 14:26 ED Decision to Admit Stat 06/13/21 07:36 Consult Pulmonology Routine 06/23/21 01:20 Consult Cardiology Routine Hospital Course (1) Acute respiratory failure with hypoxia: (2) Pneumonia due to 2019-nCoV: per Dr. Klein's notes with addendum: (1) Acute respiratory failure with hypoxia: Currently requiring CPAP.. Cont to prone . Strict bedrest. Soft diet when able. Patient desaturates when in HFNC and also with movement, maintaining saturation during prone position. Johnson catheter in place due to desaturation with movement. Patient cannot be off of CPAP for p.o. intake, will put her on gentle hydration with D5 for energy requirement, c/w bowel regimen and continue to monitor, no belly pain or distention, patient moving gas. Per prior hospitalist attending, she verbalized understanding about the mortality risk of her current situation and was presented with options. At this time she is ok with ventilation if needed. Family and primary nurse was updated. Upon my discussion with the patient, she was presented with facts and options for management of respiratory failure secondary to Covid going forward, patient agreeable to BiPAP/CPAP and intubation if the need arises. IS/flutter valve when able. Wean down oxygen as tolerated, continue with CPAP overnight and as needed. 06/23 desaturating today on CPAP patient declines intubation, prefers to transition to DNR discussed with Dr. Castro, maintain CPAP setting 16 and 100% fio2, additional Lasix 20mg IV, Azithromycin IV 06/24 patient continued to desaturate since last night Morphine IV given for restlessness/anxiety per family request patient pronounced 06/24/21 (2) Pneumonia due to 2019-nCoV: Patient not vaccinated, has signs and symptoms since May 30. BNP on 06/13 was 1563, down trended to 432 on 06/16. s/p dexa. Was started on baricitinib per EUA criteria, however, declined to continue this after considering the risks/benefits further CTA was negative for PE on 06/12. Pro-Abilio negative but uptrending Lasix 20 mg IV daily, strict I's and O's, keep patient on belt conveyor drier side. Monitor BMP daily. 06/23 management per above #. Likely bacterial pneumonia: Patient has been afebrile though her WBC count has started increasing tremendously from 06/21 and patient started to need CPAP continuously from 06/21 Positive crackles on auscultation. Decreased breath sounds. WBC elevation stays, procalcitonin though negative is uptrending We will cover her with Rocephin for likely superimposed bacterial infection on top of viral pneumonia Get blood culture, and sputum culture if able. added Azithromycin on 06/23 (3) Diarrhea: Diarrhea secondary to norovirus (tested + 06/07/2021) and COVID-19 Diarrhea currently resolved (4) Fibromyalgia: Chronic, stable, continue duloxetine, pregabalin, hydrocodone as needed per home regimen (5) DVT prophylaxis: Lovenox
--- NOTE | 2021-06-24 10:38 | Hospitalist Progress Note ---
Date of Service June 24, 2021 Assessment & Plan (1) Acute respiratory failure with hypoxia: (2) Pneumonia due to 2019-nCoV: Plan: per Dr. Klein's notes with addendum: (1) Acute respiratory failure with hypoxia: Currently requiring CPAP.. Cont to prone . Strict bedrest. Soft diet when able. Patient desaturates when in HFNC and also with movement, maintaining saturation during prone position. Johnson catheter in place due to desaturation with movement. Patient cannot be off of CPAP for p.o. intake, will put her on gentle hydration with D5 for energy requirement, c/w bowel regimen and continue to monitor, no b mary pain or distention, patient moving gas. Per prior hospitalist attending, she verbalized understanding about the mortality risk of her current situation and was presented with options. At this time she is ok with ventilation if needed. Family and primary nurse was updated. Upon my discussion with the patient, she was presented with facts and options for management of respiratory failure secondary to Covid going forward, patient agreeable to BiPAP/CPAP and intubation if the need arises. IS/flutter valve when able. Wean down oxygen as tolerated, continue with CPAP overnight and as needed. 06/23 desaturating today on CPAP patient declines intubation, prefers to transition to DNR discussed with Dr. Castro, maintain CPAP setting 16 and 100% fio2, additional Lasix 20mg IV, Azithromycin IV 06/24 patient continued to desaturate since last night Morphine IV given for restlessness/anxiety per family request patient pronounced 06/24/21 (2) Pneumonia due to 2018-nCoV: Patient not vaccinated, has signs and symptoms since May 30. BNP on 06/13 was 1563, down trended to 432 on 06/16. s/p dexa. Was started on baricitinib per EUA criteria, however, declined to continue this after considering the risks/benefits further CTA was negative for PE on 06/12. Pro-Abilio negative but uptrending Lasix 20 mg IV daily, strict I's and O's, keep patient on glue bone drier side. Monitor BMP daily. 06/23 management per above #. Likely bacterial pneumonia: Patient has been afebrile though her WBC count has started increasing tremendously from 06/21 and patient started to need CPAP continuously from 06/21 Positive crackles on auscultation. Decreased breath sounds. WBC elevation stays, procalcitonin though negative is uptrending We will cover her with Rocephin for likely superimposed bacterial infection on top of viral pneumonia Get blood culture, and sputum culture if able. added Azithromycin on 06/23 (3) Diarrhea: Diarrhea secondary to norovirus (tested + 06/07/2021) and COVID-19 Diarrhea currently resolved (4) Fibromyalgia: Chronic, stable, continue duloxetine, pregabalin, hydrocodone as needed per home regimen (5) DVT prophylaxis: Lovenox Admission and Anticipated Discharge Date Admission Date: June 09, 2021 Subjective ff up for COVID 19 pneumonia, hypoxic respiratory failure, etc messaged by RN re: asystole on monitor, patient has ceased to breathe evaluated at bedside- no heartbeat, no respiration patient pronounced 06/24/2021, 950am informed patient's Derian and sons at the bedside, offered condolences to the family Review of Systems Review of Systems: all noted and negative except for above Physical Exam Physical Exam: no respiration, no heart beat Results & Data Results & Data ([facility]) Vital Signs (Past 12 Hours) Vital Signs Temp Pulse Pulse Resp BP BP Pulse Ox 06/24/21 07:36 122 H 38 H 78 L 06/24/21 07:32 36.4 C L 123 H 30 H 101/63 79 L 06/24/21 02:05 134 H 32 H 81 L 06/23/21 22:47 36.6 C 122 H 32 H 159/100 H 81 L all noted and reviewed including below
[2021-06-24] MEDS ORDERED: METOPROLOL TARTRATE 1 MG/ML VIAL IV SCH (12:00)
--- NOTE | 2021-06-25 08:21 | Electrocardiogram Report ---
Test Reason : Blood Pressure : / mmHG Vent. Rate : 110 BPM Atrial Rate : 110 BPM P-R Int : 164 ms QRS Dur : 102 ms QT Int : 352 ms P-R-T Axes : 065 085 000 degrees QTc Int : 476 ms Poor data quality, interpretation may be adversely affected Sinus tachycardia Biatrial enlargement Incomplete right bundle branch block Nonspecific ST and T wave abnormality Abnormal ECG When compared with ECG of 23-JUN-2021 01:51, Incomplete right bundle branch block is now Present Questionable change in initial forces of Anterior leads Confirmed by Kale Wright ([id number]) on 06/25/2021 8:20:27 AM Referred By: REFERRED SELF Confirmed By:Kale Wright
== END 2021-06-24 13:29 | disposition expired | DRG 177 ==
LOC: ED 09:50 → EDINP 15:05 → SUATTDRO 15:05 → 3E 18:16 → 2E 06-14 22:16